=== PATIENT | female | born 1945 | race Caucasian/White ===

== ENCOUNTER → 2020-09-03 14:42 | Outpatient (CLI) | payer MEDICARE, BC, SELFPAY ==
--- NOTE | 2020-09-03 14:48 | CT_ITS ---
INDICATION: PRIMARY OSTEOARTHRITIS EXAMINATION: CT Shoulder W/O Contrast Injection TECHNIQUE: Helically acquired images were obtained of the right shoulder. 2-D reformats were performed by the technologist. A radiation dose optimization technique was used for this scan. IV Contrast dosage and agent: None. COMPARISON: None. FINDINGS: BONES AND ALIGNMENT: No acute fractures. The alignment is anatomic. JOINTS: Moderate hypertrophic osteoarthritis of the acromioclavicular joint. Moderate degenerative changes of the right glenohumeral joint. There is a large complex joint effusion with possible subacromial-subdeltoid bursitis. SOFT TISSUES: No significant soft tissue swelling. OTHER: Scattered groundglass opacities in the right lung. CT/Extremity Upper without Contra IMPRESSION: Large complex glenohumeral joint effusion with possible subacromial-subdeltoid bursitis. An MRI may be of benefit if clinically warranted. Moderate degenerative arthritis of the right glenohumeral and AC joint. Scattered groundglass opacities in the right lung may be infectious or inflammatory in etiology. Electronically Signed: Margarito Nieves MD at 22:57 EDT Tel , Service support ,
== END ==
PROVIDERS: PCP Internal Medicine; Referring Provider Specialist; Visit Provider Specialist
DX: M19.011 Primary osteoarthritis, right shoulder (principal)
CPT/HCPCS: 73200

== ENCOUNTER 2020-11-14 16:01 | Observation (INO) | payer MEDICARE, BC, SELFPAY ==
--- NOTE | 2020-11-06 10:22 | EKG12_ITS ---
Test Reason : PEOP Blood Pressure : / mmHG Vent. Rate : 095 BPM Atrial Rate : 095 BPM P-R Int : 000 ms QRS Dur : 132 ms QT Int : 410 ms P-R-T Axes : 098 262 055 degrees QTc Int : 515 ms Ventricular-paced rhythm Abnormal ECG Confirmed by BERTIN BETH, SUNSHINE ([id number]), health editor KEARA TORRES ([id number]) on 11/07/2020 9:31:59 AM Referred By: Kike Schroeder Confirmed By:SUNSHINE DENTON MD
--- NOTE | 2020-11-06 10:40 | RAD_ITS ---
STUDY: X-RAY CHEST REASON FOR EXAM: Female, 75 years old. Preop TECHNIQUE: COMPARISON: None. FINDINGS: The lungs are clear and expanded. There is no demonstrated pleural abnormality. Normal size heart. Normal mediastinum and sorin. Normal visualized pulmonary arteries. Normal visualized aortic arch and descending thoracic aorta. There is evidence of pacemaker with [address] Normal visualized thoracic spine. Normal visualized ribs, clavicles, and shoulders. There is no demonstrated abnormality of the visualized soft tissue structures of the upper abdomen. RAD/Chest PA and Lateral IMPRESSION: Normal x-ray examination of the chest. Electronically Signed: Eloisa Camacho, at 8:25 EDT Tel , Service support ,
[2020-11-06 12:25] LABS: Absolute Lymphocyte Count 1.54 X10^3/uL (0.83-4.51); Absolute Neutrophil Count 2.7 X10^3/uL (2.0-7.7); Basophil# 0.02 X10^3/uL; Basophil% 0.4 % (0-1); Eosinophil# 0.05 X10^3/uL; Hematocrit 39.9 % (37-47); Hemoglobin 12.6 g/dL (12.0-15.0); Lymphocyte # 1.54 X10^3/ul (0.83-4.51); Lymphocyte % 31.4 % (19-41); Mean Corp Hgb Conc 31.6 g/dL (32-36); Mean Corpuscular Hgb 31.5 pg (27.0-32.0); Mean Corpuscular Volume 99.8 fL (81-99); Mean Platelet Vol. 8.8 fl (6.2-12.0); Monocyte# 0.58 X10^3/uL; Monocyte% 11.8 % (0-10); NRBC Flagged by Analyzer 0 % (0-5); Neutrophil # 2.69 X10^3/uL (2.7-7.7); Platelet Count 235 K/mm3 (150-450); RBC Distribution Width CV 13.9 % (11.6-14.6); RBC Distribution Width SD 51.1 fl (35.1-43.9); White Blood Count 4.9 K/mm3 (4.4-11.0)
[2020-11-06 12:36] LABS: International Normalized Ratio 1.3
[2020-11-06 12:37] LABS: Partial Thromboplast Time 27.5 Seconds (24.1-36.2)
[2020-11-06 13:00] LABS: Hemoglobin A1c 5.6 % (3.8-5.6)
[2020-11-06 13:11] LABS: Anion Gap 5 (5-15); BUN 18 mg/dL (7-18); BUN/Creat Ratio 14.6 RATIO (10-20); Calcium,Total 9.2 mg/dL (8.5-10.1); Chloride 104 mmol/L (98-107); Creatinine, Serum 1.23 mg/dL (0.55-1.02); EST Glomerular Filtration Rate 45 mL/min (>60); Est Glom Filt Rate - Afr Amer 55 mL/min (>60); Glucose 103 mg/dL (74-106); Potassium 4.2 mmol/L (3.5-5.1); Sodium Level 141 mmol/L (136-145)
[2020-11-06 13:32] LABS: AST(SGOT) 29 U/L (15-37); Alanine Aminotransfer ALT/SGPT 24 U/L (13-56); Albumin, Serum 3.7 g/dL (3.2-5.0); Alkaline Phosphatase 70 U/L (45-117); Bilirubin, Direct 0.13 mg/dL (0.00-0.30); Globulin 3.3 g/dL (2.2-4.2); Magnesium 2.1 mg/dL (1.6-2.6)
[2020-11-14] VITALS (11 sets, daily range): BP systolic 101–155; BP diastolic 35–87; PULSE 65–77; RESP 16–20; TEMP 36.5–36.9; O2SAT 95–100; BMI 45.1
[2020-11-14 12:40] LABS: Bedside Glucose 204 mg/dL (70-110)
[2020-11-14] MEDS: Insulin Lispro 100 UNIT/ML INSULN.PEN SC (13:05)
[2020-11-14] MEDS: Lactated Ringers 1,000 ML 100 ML IV ×2 (13:05→16:30)
[2020-11-14] MEDS: Acetaminophen 500 MG Tablet 1000 MG PO ×2 (13:09→22:16)
[2020-11-14] MEDS: Gabapentin 600 MG Tablet PO (13:40)
[2020-11-14] MEDS: dexAMETHasone 10 MG/ML Vial IV (15:00)
[2020-11-14] MEDS: morphine PF (epidural) 5 MG/10 ML Vial (15:55)
[2020-11-14] MEDS: Epinephrine (1 mg/ml) 1 MG/ML VIAL (15:55)
[2020-11-14] MEDS: Ketorolac 30 MG/ML Syringe (15:55)
--- NOTE | 2020-11-14 15:56 | PCM.OPRPT ---
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 [place] reunion glenoid baseplate 2. [place] reunion 36 mm, 2mm Glenosphere 3. Gab[place] reunion 36mm, 8mm humeral liner 4. [place] reunion reverse TSA humeral adapter tray 4mm 5. Gaby reunion humeral stem primary press-fit 15mm size Brief history/Operative indications: 75 yo F with history of right shoulder pain and cuff tear arthropathy. Patient failed conservative measures as mentioned in the H&P. After discussion of risk and benefits of reverse total shoulder replacement including but not limited to blood loss, DVTs, PEs, nerve vessel damage, infection, general risk of anesthesia including loss of life, instability and stiffness patient demonstrating understanding wish to proceed was able to sign informed consent. Medical clearance was obtained. Procedure: On the date of the procedure, patient's right upper extremity was marked in the preoperative area. Patient was taken back to the operating room where they were placed on the table in the supine position. Anesthesia assumed control of the C-spine and airway, then administered anesthetic. All bony prominences were identified well-padded, the head was secured and the patient was placed in the beachchair position at about 35? inclination. Anesthesia remained in control of the C-spine airway throughout the remainder of the procedure. Patient was then appropriately fastened to the table and the right upper extremity was prepped in a sterile fashion. The surgeons then scrubbed. Upon reentering the room, the right upper extremity was draped in a sterile fashion and the incision was marked out. Timeout was called, everyone agreed upon the side, the site, the procedure to be performed, patient identity and antibiotics given. Incision was taken down through skin and subcutaneous tissue, fat down to fascia. The stripe of the deltopectoral interval and cephalic vein were identified and blunt dissection was used to retract the deltoid. The cephalic vein was retracted laterally. Clavipectoral fascia was then incised and a cobra retractor was placed in the wound. The proximal one third of the pectoralis major insertion was released. Pectoralis tendon insertion was used to tenodesed the biceps tendon which was identified in the bicipital groove. Tenodesis was done with #1 Vicryl. Proximally we followed the biceps tendon after transecting it into the rotator interval. The rotator interval was split and the arm was externally rotated. The split was 1 cm medial to the bicipital groove. Subscapularis tendon was released. We released down the anterior portion of the humeral head and a rock elevator was used to release the inferior portion of the humeral head. The arm was externally rotated and the shoulder was dislocated. The humeral head was then cut at its natural retroversion. Once his humeral head cut was made humerus was retracted out of the way and the glenoid was exposed. After exposing the glenoid, the labrum and the remaining proximal biceps were debrided. At this time we are able to view the entire outer edge of the glenoid. A central pin was placed we sequentially reamed over this central pin to 24mm. Once this was completed the central screw was measured and found to be. The glenoid baseplate was screwed into place. Wound was closely irrigated out with normal saline we then drilled sequentially for 2 screws. Screws were placed superiorly and inferiorly and tightened down the screws. Once the screws were appropriately tightened into place the glenoid baseplate was compressed against the exposed subchondral bone. A 36mm glenosphere was impacted into place engaging the [place] taper. Attention was then turned towards the humerus. The humerus was again externally rotated exposing the proximal portion of the humerus. Central canal finder was then used to open up the canal. We reamed to a 15mm reamer. We then broached to a 15mm stem. We trialed the 8mm liner, with the 4mm humeral baseplate. We obtained an adequate reduction at this time with a nice stable shoulder. Good internal rotation to the gluteus, forward elevation to 140?, external rotation to 20?. Final components were then assembled on the back table, trials were removed and the wound was copiously irrigated with normal saline after dislocating the shoulder. Once the final components were assembled they were impacted into place. Shoulder was then reduced and found to be stable with good range of motion. Subscapularis tendon was not repairable. The wound was with chlorhexidine solution then copiously irrigated out with a 1 L normal saline lavage. The deltopectoral fascia was then closed using #1 Vicryl skin was closed using 2-0 Vicryl interrupted sutures and final skin closure was done with 3-0 Monocryl. Steri-Strips are placed for final skin closure. Sterile dressing was placed patient was then placed in a sling and awakened by anesthesia. Patient was then transferred to the PACU for recovery. Postoperative plan: Patient will be admitted to the hospital overnight. They will get physical therapy starting in 2 weeks with normal postoperative regimen. Patient will resume her Eliquis tomorrow for DVT prophylaxis. The first postoperative appointment will be in 2 weeks for wound check and initiation of phase 1 physical therapy. During the course of the procedure the physician oncology physician assistant played a vital role. His intimate knowledge of my steps in the procedure aided in safe and expedient completion of the procedure. The PA played a vital rolls in positioning particularly in obtaining the appropriate beach chair position and securing the patient's body and head to the table. The PA was also vital in the retraction of soft tissues during the exposure and especially the glenoid work as this is a vital part of the procedure to prevent neurovascular damage. the PA was also vital and protecting soft tissues during times of bony cuts and reaming. He also played a vital role in closure with my direct supervision. The PA was also important during reduction and dislocation of the joint and trials intraoperatively. Complications No intraoperative complications Admit VTE Documentation VTE Present on Admission: No VTE Mechan Device Prophylaxis: SCD's VTE Pharm Prophylaxis ordered?: Yes
--- NOTE | 2020-11-14 16:55 | RAD_ITS ---
STUDY: X-RAY - RIGHT SHOULDER REASON FOR EXAM: Female, 75 years old. post op -- AP and Lateral X-Ray of operative shoulder in PACU TECHNIQUE: 2 view(s) of the shoulder. COMPARISON: Chest x-ray dated NOVEMBER 06, 2020 FINDINGS: The humeral head has been resected and a newly placed prosthesis is present with its stem well seated within the proximal one third shaft. The humeral prosthesis proximal head articulating component demonstrates good alignment with the newly placed glenoid ball prosthesis. The glenoid prosthesis is anchored into the bone by several cancellous screws. Expected postoperative gas and soft tissue swelling noted around the shoulder joint. No occult fractures. Normal visualized pulmonary apex. Normal acromioclavicular joint. Normal acromion. RAD/Shoulder min 2 Views IMPRESSION: Status post right shoulder arthroplasty Electronically Signed: Reginald Mcelroy MD at 19:17 EDT , Service support ,
[2020-11-14 17:16] LABS: Bedside Glucose 199 mg/dL (70-110)
[2020-11-14] MEDS: Calcium Acetate 667 MG Capsule 1334 MG PO (18:29)
[2020-11-14] MEDS: Sotalol Hydrochloride 80 MG Tablet PO (18:29)
[2020-11-14] MEDS: Furosemide 20 MG Tablet PO (18:29)
[2020-11-14] MEDS: Ensure Surgery 237 ML LIQUID PO (18:29)
[2020-11-14] MEDS: Ipratropium 0.5 MG/2.5 ML SOLUTION INHALATION (19:26)
[2020-11-14] MEDS: Budesonide Respules 0.5 MG/2 ML AMPUL.NEB. INHALATION (19:27)
--- NOTE | 2020-11-14 19:31 | PCM.PN.HOSP ---
Documented by User: MIGUELINA Peñaloza 11/14/20 19:52 Subjective Subjective Patient is a 75-year-old female who underwent right reverse total shoulder replacement today with Dr. Schroeder. Patient has extensive history of of arrhythmias and due to this we were asked to consult for medical management. Patient states that currently her atrial fibrillation is well controlled after the placement of a pacer AICD and her initiation on sotalol. Patient also reports a medical history of rheumatoid arthritis, COPD, chronic kidney disease stage IIIa, CHF and sleep apnea for which she wears a CPAP. Objective Data Objective Data Vital Signs: Vital Signs Temp Pulse Resp BP Pulse Ox 98.5 F 72 16 144/75 H 95 11/14/20 18:12 11/14/20 18:12 11/14/20 18:12 11/14/20 18:12 11/14/20 18:12 Oxygen Flow Rate (L/min) 6 Oxygen Delivery Method Simple Mask Weight: 262 lb 9.6 oz Body Mass Index (BMI) 45.1 Intake & Output: Intake and Output for Last 24 Hours 11/12/20 11/13/20 11/14/20 23:59 23:59 23:59 Intake Total 1877.5 / 1877.5 Balance 1877.5 / 1877.5 Lab / Micro Data Result Diagrams: 11/06/20 11:00 11/06/20 11:00 Labs: Laboratory Results - last 24 hr 11/14/20 11/14/20 12:35 17:10 POC Glucose 204 H 199 H Micro: Microbiology 11/06/20 11:00 Interface Orders Nasal Screen MRSA/MSSA - Final Radiography Diagnostic Testing: Radiology Impression Shoulder X-Ray 11/14/20 16:55 IMPRESSION: Status post right shoulder arthroplasty Electronically Signed: Reginald Mcelroy MD at 19:17 EDT , Service support , Physical Exam Const alert, oriented x3 and no apparent distress HEENT normocephalic and head/scalp atraumatic Eyes conjunctivae normal and no scleral icterus Neck full ROM, supple and no JVD General: trachea midline Lymph Lymphatic: no lymphadenopathy noted Resp normal respiratory effort, normal air movement, no retractions, no use of accessory muscles and clear to auscultation bilaterally Cardio regular rate, regular rhythm, S1 normal heart sound and S2 normal heart sound Peripheral Pulses: pulses 2+ throughout GI normal to inspection, nondistended, normoactive bowel sounds, soft to palpation and non-tender Extremity normal to inspection, normal capillary refill and no clubbing, cyanosis or edema Peripheral Pulses: Yes pulses 2+ throughout Right Upper Extremity: shoulder joint Shoulder Joint Exam - Right: palpation (Nontender), ROM (Sling on and intact) and neurovascular exam (Intact) Skin no rashes or lesions noted and skin turgor normal Wounds: wounds noted Wound Narrative: Surgical incision to right anterior shoulder, dressing dry and intact Neuro oriented x3, moves all extremities, no focal motor deficits and no sensory deficits noted Psych mental status grossly normal, thought process normal, cooperative, affect normal and speech normal Assessment & Plan Assessment/Plan (1) Status post reverse total replacement of right shoulder: PLAN: 1. Status post reverse total replacement of right shoulder -Surgery completed 11/14/2020 -Pain management regimen ordered per orthopedic surgeon -OT to evaluate and treat 2. Atrial fibrillation -Preop EKG shows ventricularly paced rhythm, will obtain EKG for baseline this admission -Continue sotalol, patient reports being well controlled previous to admission -Per surgery Eliquis will be restarted evening of 11/15/2020 3. Hypertension -Vital signs per protocol, trend BP and heart rate -Current vital signs stable, continue Entresto. -As needed hydralazine ordered 4. Asthma -Due to surgery prednisone currently being held. Would recommend restarting prednisone as soon as cleared by surgery. -Continue budesonide and ipratropium nebulizer treatments along with as needed albuterol aerosols. -Continue home CPAP while admitted 5. Chronic kidney disease stage IIIa -Currently patient is at baseline -Trend BUN and creatinine with daily BMP -Phoslo ordered 6. Congestive heart failure -Continue p.o. Lasix -IV fluids discontinued due to patient adequate p.o. intake -Daily weights ordered 7. Rheumatoid arthritis - Patient currently on Xeljanz, advised to bring in medication from home. DVT prophylaxis-SCDs This patient was seen by MIGUELINA Peñaloza under the supervision of Dr. Dolan. Documented by User: Dr. Sofy Dolan MD 11/14/20 19:56 Objective Data Lab / Micro Data Result Diagrams: 11/06/20 11:00 11/06/20 11:00
--- NOTE | 2020-11-14 19:35 | EKG12_ITS ---
Test Reason : Blood Pressure : / mmHG Vent. Rate : 069 BPM Atrial Rate : 069 BPM P-R Int : 194 ms QRS Dur : 074 ms QT Int : 412 ms P-R-T Axes : 062 -76 026 degrees QTc Int : 441 ms Electronic ventricular pacemaker When compared with ECG of 06-NOV-2020 10:25, Vent. rate has decreased BY 26 BPM Confirmed by JAZ BETH, TENISHA ([id number]), photo editor KEARA TORRES ([id number]) on 11/15/2020 12:55:30 PM Referred By: Kike Schroeder Confirmed By:LUDMILA SEBASTIAN MD
[2020-11-14] MEDS: Ondansetron 4 MG/2 ML Vial IV (20:44)
[2020-11-14] MEDS: 0.9% Saline Lock 10 ML Syringe IV (20:44)
[2020-11-14] MEDS: Cefazolin 1 GM/50 ML BAG IV (22:15)
[2020-11-14] MEDS: Tolterodine Tartrate 2 MG CAP.SA PO (22:16)
[2020-11-14] MEDS: SACUBITRIL/VALSARTAN 24/26 MG TABLET 1 EACH PO (22:17)
[2020-11-14] MEDS: Atorvastatin Calcium 80 MG Tablet PO (22:17)
[2020-11-14] MEDS: DULoxetine Hcl 60 MG Capsule PO (22:17)
[2020-11-14] MEDS: Senna/Docusate Sodium 1 Tablet 2 TABLET PO (22:18)
[2020-11-15 02:30] VITALS: BP 134/68; PULSE 83; RESP 18; TEMP 36.5; O2SAT 96
[2020-11-15] MEDS: Cefazolin 1 GM/50 ML BAG IV (06:02)
[2020-11-15] MEDS: Acetaminophen 500 MG Tablet 1000 MG PO ×2 (06:03→13:09)
[2020-11-15] MEDS: 0.9% Saline Lock 10 ML Syringe IV (06:03)
[2020-11-15] MEDS: Ketorolac 15 MG/ML Vial IV (06:03)
[2020-11-15] MEDS: Sotalol Hydrochloride 80 MG Tablet PO (06:03)
[2020-11-15 06:53] LABS: Hematocrit 30.4 % (37-47); Hemoglobin 9.5 g/dL (12.0-15.0); Mean Corp Hgb Conc 31.3 g/dL (32-36); Mean Corpuscular Hgb 30.9 pg (27.0-32.0); Mean Platelet Vol. 9.1 fl (6.2-12.0); Platelet Count 138 K/mm3 (150-450); RBC Distribution Width CV 13.2 % (11.6-14.6); RBC Distribution Width SD 47.4 fl (35.1-43.9); Red Blood Count 3.07 M/mm3 (4.2-5.4); White Blood Count 9.5 K/mm3 (4.4-11.0)
[2020-11-15 07:19] LABS: Anion Gap 6 (5-15); BUN 19 mg/dL (7-18); BUN/Creat Ratio 15.2 RATIO (10-20); Calcium,Total 8.2 mg/dL (8.5-10.1); Chloride 103 mmol/L (98-107); Creatinine, Serum 1.25 mg/dL (0.55-1.02); EST Glomerular Filtration Rate 44 mL/min (>60); Est Glom Filt Rate - Afr Amer 54 mL/min (>60); Estimated Creatinine Clearance 33.06 ml/min; Glucose 224 mg/dL (74-106); Sodium Level 135 mmol/L (136-145)
[2020-11-15] MEDS: Budesonide Respules 0.5 MG/2 ML AMPUL.NEB. INHALATION (07:34)
[2020-11-15] MEDS: Ipratropium 0.5 MG/2.5 ML SOLUTION INHALATION (07:34)
[2020-11-15 07:35] VITALS: PULSE 80; RESP 20; O2SAT 96
--- NOTE | 2020-11-15 07:36 | CPS ---
wears with cpap at night
[2020-11-15 08:28] VITALS: BP 109/61; PULSE 67; RESP 18; TEMP 36.6; O2SAT 94
[2020-11-15] MEDS: Calcium Acetate 667 MG Capsule 1334 MG PO ×2 (08:37→11:57)
[2020-11-15] MEDS: Aspirin E.C. 81 MG Tablet PO (08:37)
[2020-11-15] MEDS: Folic Acid 1 MG Tablet PO (08:37)
[2020-11-15] MEDS: Ensure Surgery 237 ML LIQUID PO (08:37)
--- NOTE | 2020-11-15 08:51 | PCM.PN.ORT ---
Subjective Subjective The patient was sitting in bedside chair upon examination. Patient denies any chest pain, shortness of breath, dizziness, lightheadedness, nausea or vomiting, or calf pain. Pain is controlled on medications. No adverse overnight events. Patient does have soreness and some pain in the right shoulder. She has been placed back on her Eliquis as prescribed from outside provider. This will cover her for DVT prophylaxis. Her pain is been well controlled. Objective Data Objective Data Vital Signs: Vital Signs Temp Pulse Resp BP Pulse Ox 97.8 F 67 18 109/61 94 11/15/20 08:28 11/15/20 08:28 11/15/20 08:28 11/15/20 08:28 11/15/20 08:28 Oxygen Flow Rate (L/min) 4 Oxygen Delivery Method CPAP Weight: 123.9 kg Body Mass Index (BMI) 45.1 Intake & Output: Intake and Output for Last 24 Hours 11/13/20 11/14/20 11/15/20 23:59 23:59 23:59 Intake Total 2607.5 / 2607.5 1006.75 / 1006.75 Balance 2607.5 / 2607.5 1006.75 / 1006.75 Lab / Micro Data Result Diagrams: 11/15/20 06:05 11/15/20 06:05 Labs: Laboratory Results - last 24 hr 11/14/20 11/14/20 11/15/20 12:35 17:10 06:05 WBC 9.5 RBC 3.07 L Hgb 9.5 L Hct 30.4 L MCV 99.0 MCH 30.9 MCHC 31.3 L RDW Std Deviation 47.4 H RDW Coeff of Amrita 13.2 Plt Count 138 L MPV 9.1 Sodium Potassium Chloride Carbon Dioxide Anion Gap BUN Creatinine Estim Creat Clear Calc Est GFR (MDRD) Af Amer Est GFR (MDRD) Non-Af BUN/Creatinine Ratio Glucose Calcium POC Glucose 204 H 199 H 11/15/20 06:05 WBC RBC Hgb Hct MCV MCH MCHC RDW Std Deviation RDW Coeff of Amrita Plt Count MPV Sodium 135 L Potassium 4.0 Chloride 103 Carbon Dioxide 26.0 Anion Gap 6 BUN 19 H Creatinine 1.25 H Estim Creat Clear Calc 33.06 Est GFR (MDRD) Af Amer 54 L Est GFR (MDRD) Non-Af 44 L BUN/Creatinine Ratio 15.2 Glucose 224 H Calcium 8.2 L POC Glucose Micro: Microbiology 11/06/20 11:00 Interface Orders Nasal Screen MRSA/MSSA - Final Radiography Diagnostic Testing: Radiology Impression Shoulder X-Ray 11/14/20 16:55 IMPRESSION: Status post right shoulder arthroplasty Electronically Signed: Reginald Mcelroy MD at 19:17 EDT , Service support , Physical Exam Narrative Vital signs stable, afebrile Dressing is clean, dry, intact Ultra-sling fitting appropriately Sensation intact to axillary, radial, median, and ulnar distribution Motor intact to AIN, PIN, and ulnar nerve Const alert, oriented x3 and no apparent distress Assessment & Plan Assessment/Plan (1) Status post reverse total replacement of right shoulder: PLAN: 1. S/P right reverse total shoulder arthroplasty POD #1 2. Continue Pain Medications: Tylenol and oxycodone 3. DVT Prophylaxis: Patient has been placed back on her Eliquis and aspirin 81 mg as this is a home medicine from outside provider. This will cover her for DVT prophylaxis. 4. PT/OT: Continue with UltraSling at all times except to come out for range of motion exercises of the elbow and pendulum exercise 3 times daily. No range of motion of the postoperative shoulder until outpatient physical therapy begins. Outpatient physical therapy will begin 2 weeks postoperatively after follow-up with [facility] with x-rays and incision check. 5. H & H: 9.5/30.4, asymptomatic. Postoperative anemia secondary to acute blood loss from surgery without any intra operative complications. 6. Continue postoperative medical management per medicine 7. Encouraged Incentive Spirometry 8. Disposition: Plan will be for discharge home today as long as pain is well controlled and patient is medically stable. Patient has outpatient physical therapy to begin after the 2-week postoperative visit. She will follow-up per postop instructions. Patient would like her prescription sent to [facility]. I have reviewed the [place] Automated Rx Reporting System (OARRS) report for this patient for refill pattern and other prescriber involvement as part of the appropriate surveillance for the provision of acute and chronic controlled medications. The report was requested and reviewed on the date of this entry and was considered in the prescribing process.
--- NOTE | 2020-11-15 08:54 | PCM.DC ---
Discharge Instructions Diet Discharge Diet: No restrictions Activity Discharge Activity: May Not Drive (while taking narcotic pain medications.) May shower in (days): 1 (Dressing must be intact to skin. Turn dressing away from water.) Ice area for (Minutes): 20 (Every 1-2 hours while awake[address] Please place barrier between skin and ice pack.) Weight Bearing Status: No weight bearing (Postoperative upper extremity) Additional Activity Instructions:: Continue with UltraSling at all times. Please come out of UltraSling 3 times daily working on elbow range of motion and pendulum exercises. No range of motion of postoperative shoulder. Will begin outpatient physical therapy after 2-week scheduled follow-up. Dressing / Incision Call your doctor if your incision/area has: Continuous Slow Oozing, Sudden Increased Bleeding, Increased Pain/ Swelling, Increased Redness and Foul Smelling Discharge Call your doctor if you observe: Fever of 101 or Higher, Shortness of breath, Chest pain and Uncontrolled pain Remove Dressing in: 4 days (Okay to remove dressing on November 19, 2020) Additional Dressing/Incision Instructions:: Follow [facility] Post-op Instructions. Once postoperative dressing has been removed only use gentle soap and water over the incision. Do not use any ointments, Neosporin, salves, alcohol pads over the incision for 6 weeks postoperatively. Do not submerge underwater for 6 weeks postoperatively. Do NOT use alcohol with narcotic pain medication. Do NOT make important decisions while taking narcotic medication. If you have problems with taking your medication (rash, itching, nausea, etc.) call the office at once. Follow Up Care Test Results: Test results from this visit will be discussed in further detail at your follow-up appointment, if applicable. Discharge Plan Admission Admit Date/Time: 11/14/20 16:01 Attending Provider: Kike Schroeder Primary Care Provider: Crispin Jhaveri Consulting Providers: Rodger Orr Discharge Orders/Prescriptions Prescriptions: New acetaminophen 500 mg Tablet 1,000 mg PO TID Qty: 100 RF: 0 oxycodone 5 mg Tablet 5 - 10 mg PO Q4H PRN PRN (Reason: Pain Score 4-10) 4 Days Qty: 48 RF: 0 sennosides-docusate sodium [Stool Softener-Stimulant Laxat] 8.6-50 mg Tablet 2 tab PO BID Qty: 14 RF: 0 Continued atorvastatin 80 mg tablet 80 mg PO DAILY RF: 0 benzonatate 200 mg capsule 200 mg PO BID PRN (Reason: Cough) RF: 0 sotalol 80 mg tablet 80 mg PO Q12H RF: 0 prednisone 5 mg tablet 5 mg PO DAILY RF: 0 aspirin [Aspirin Low Dose] 81 mg tablet,delayed release (DR/EC) 81 mg PO DAILY RF: 0 pantoprazole 40 mg tablet,delayed release (DR/EC) 40 mg PO DAILY RF: 0 lansoprazole 30 mg Capsule,Delayed Release(Dr/Ec) 30 mg PO DAILY RF: 0 oxybutynin chloride 5 mg tablet extended release 24hr 5 mg PO QHS RF: 0 folic acid 1 mg Tablet 1 mg PO DAILY RF: 0 zolpidem 5 mg tablet 5 mg PO QHS PRN (Reason: Insomnia) RF: 0 furosemide 20 mg tablet 20 mg PO BID RF: 0 albuterol sulfate 90 mcg/actuation HFA aerosol inhaler 1 puff INHALATION Q6H PRN (Reason: Wheezing) RF: 0 diphenhydramine-acetaminophen [Tylenol PM Extra Strength] 25-500 mg Tablet 2 tab PO QHS PRN (Reason: insom) RF: 0 vitamin B complex Capsule 1 cap PO TID RF: 0 coenzyme Q10 [CoQ-10] 100 mg Capsule 100 mg PO DAILY RF: 0 glucosamine-chondroitin [Osteo Bi-Flex] 250-200 mg Tablet 2 tab PO TID RF: 0 calcium acetate(phosphat bind) 667 mg Capsule 1,334 mg PO TID RF: 0 duloxetine 60 mg capsule,delayed release(DR/EC) 60 mg PO QHS RF: 0 cholecalciferol (vitamin D3) [Vitamin D3] 25 mcg (1,000 unit) Tablet 25 mcg PO DAILY RF: 0 Pulmicort Flexhaler 180 mcg/actuation aerosol powdr breath activated 2 inh INHALATION BID RF: 0 Xeljanz 5 mg tablet 5 mg PO BID RF: 0 Eliquis 5 mg tablet 5 mg PO Q12H RF: 0 Stiolto Respimat 2.5-2.5 mcg/actuation mist 2 puff INHALATION DAILY RF: 0 Entresto 24-26 mg tablet 1 tab PO BID RF: 0 B12 Active 1,000 mcg Tablet,Chewable 1,000 mcg PO DAILY RF: 0 Discontinued acetaminophen [Arthritis Pain Relief (acetam)] 650 mg Tablet Extended Release 650 mg PO Q8H RF: 0 No Action montelukast 10 mg tablet 10 mg PO DAILY RF: 0 Other Ambulatory Orders: 12 Lead EKG (Routine) Location: None Selected Ordered By: Dr. Kike Schroeder Referrals / Follow Up: Crispin Jhaveri MD [Primary Care Provider] - Kamaljit Perez PA-C [PHYSICIAN LEAD INSTALLER] - 11/28/20 1:15 pm Disposition Disposition (needs filled in before D/C Order can be placed): Home, Self Care
--- NOTE | 2020-11-15 09:24 | PN.HOSP_ITS ---
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 She used to follow [place] woven wood shade assembler before but currently not seeing woven wood shade assembler. Hemoglobin 9.5, baseline 12.6. Platelet count baseline 235 current 138. Advised to hold aspirin for about 1 to 2 weeks, repeat CBC in 1 week and follow- up with PCP later, whether to resume baby aspirin. She is on 4 L of oxygen that is her baseline. No chest pain. No shortness of breath, more than her baseline. And right shoulder surgery yesterday. Objective Data Objective Data Vital Signs: Vital Signs Temp Pulse Resp BP Pulse Ox 97.8 F 67 18 109/61 94 11/15/20 08:28 11/15/20 08:28 11/15/20 08:28 11/15/20 08:28 11/15/20 08:28 Oxygen Flow Rate (L/min) 4 Oxygen Delivery Method CPAP Weight: 273 lb 2.444 oz Body Mass Index (BMI) 45.1 Intake & Output: Intake and Output for Last 24 Hours 11/13/20 11/14/20 11/15/20 23:59 23:59 23:59 Intake Total 2607.5 / 2607.5 1006.75 / 1006.75 Balance 2607.5 / 2607.5 1006.75 / 1006.75 Lab / Micro Data Result Diagrams: 11/15/20 06:05 11/15/20 06:05 Labs: Laboratory Results - last 24 hr 11/14/20 11/14/20 11/15/20 12:35 17:10 06:05 WBC 9.5 RBC 3.07 L Hgb 9.5 L Hct 30.4 L MCV 99.0 MCH 30.9 MCHC 31.3 L RDW Std Deviation 47.4 H RDW Coeff of Amrita 13.2 Plt Count 138 L MPV 9.1 Sodium Potassium Chloride Carbon Dioxide Anion Gap BUN Creatinine Estim Creat Clear Calc Est GFR (MDRD) Af Amer Est GFR (MDRD) Non-Af BUN/Creatinine Ratio Glucose Calcium POC Glucose 204 H 199 H 11/15/20 06:05 WBC RBC Hgb Hct MCV MCH MCHC RDW Std Deviation RDW Coeff of Amrita Plt Count MPV Sodium 135 L Potassium 4.0 Chloride 103 Carbon Dioxide 26.0 Anion Gap 6 BUN 19 H Creatinine 1.25 H Estim Creat Clear Calc 33.06 Est GFR (MDRD) Af Amer 54 L Est GFR (MDRD) Non-Af 44 L BUN/Creatinine Ratio 15.2 Glucose 224 H Calcium 8.2 L POC Glucose Micro: Microbiology 11/06/20 11:00 Interface Orders Nasal Screen MRSA/MSSA - Final Radiography Diagnostic Testing: Radiology Impression Shoulder X-Ray 11/14/20 16:55 IMPRESSION: Status post right shoulder arthroplasty Electronically Signed: Reginald Mcelroy MD at 19:17 EDT , Service support , Physical Exam Narrative Physical exam General: Alert, Oriented x3, Cooperative HEENT: Atraumatic, PERRLA, EOMI, Normocephalic Oral: No Gingival or Mucosal Lesions/ Ulcerations Neck: Supple, No JVD, Negative Carotid Bruits Lungs: Air entry diminished in bilateral lung bases. No crepitation/rhonchi Cardiovascular: Regular rate, Regular Rhythm, Normal S1, Normal S2, No murmurs Abdomen: Bowel Sounds Present, Soft, Non Tender, Non-Distended : No renal angle tenderness. No suprapubic tenderness. Extremities: Right shoulder surgical dressing is dry. On Ultrasling. no edema, Capillary Refill Less than 3 Seconds Skin: No rashes, No breakdown Musculoskeletal: No Tenderness to Palpation of Joints or Extremities Neurological: Cranial nerves II-XII grossly intact, Deep Tendon Reflexes 2+/4 and Symmetrical, Neuro grossly intact Psych/Mental Status: Normal Affect, Appropriate. Assessment & Plan Assessment/Plan (1) Status post reverse total replacement of right shoulder: PLAN: 1. 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 Hemoglobin dropped from 12.6-9.5, acute anemia from operative/surgical blood l oss. Mild thrombocytopenia, platelet count 1 38,000, dropped from 235,000. Advised to hold baby aspirin for about 2 weeks and repeat CBC with PCP within 2 weeks. Patient is already on Eliquis 5 mg twice daily for A. fib. 2. Chronic heart failure, nonischemic cardiomyopathy status post AICD, par oxysmal A. fib: Patient is on Entresto, sotalol, Lasix, and high intensity statin therapy. As mentioned above advised to hold baby aspirin. Needs to follow outpatient woven wood shade assembler. 3. COPD/asthma/allergic rhinitis: Patient follows [facility] rubber engra[facility]. Has CPAP at home. Currently on baseline. 4. Other comorbidities include obstructive sleep apnea, GERD: Home medications continued Discussed with the orthopedic PAKamaljit and discussed the management plan. Follow-up with orthopedic surgery for outpatient rehab and range of motion of right shoulder. Charges/Coding Visit Charges Inpatient E&M: 27460 Subs Hosp L2
[2020-11-15] MEDS: Montelukast 10 MG Tablet PO (10:11)
[2020-11-15] MEDS: Cholecalciferol (VIT D3) 25 MCG TABLET (1,000 UNITS) PO (10:11)
[2020-11-15] MEDS: Senna/Docusate Sodium 1 Tablet 2 TABLET PO (10:11)
[2020-11-15] MEDS: Furosemide 20 MG Tablet PO (10:12)
[2020-11-15] MEDS: SACUBITRIL/VALSARTAN 24/26 MG TABLET 1 EACH PO (10:12)
[2020-11-15] MEDS: Pantoprazole Sodium 40 MG Tablet PO (10:12)
--- NOTE | 2020-11-15 10:20 | CASEMGMT ---
MAUDE KELLER Assessment: Face to Face with pt for initial transition planning/care coordination assessment. RN ARIANNA introduced self and role at [facility], pt voices understanding and consents to assessment. Pt is A/O x4 and answers all questions appropriately at this time. Pt sitting up in chair eating breakfast, nurse at bedside. As soon as CM entered room, pt states she wants to go to [facility]. Care providers, pharmacy, and demographics verified/updated. Admitting Dx: R total shoulder replacement, reverse PCP: Shakila Specialists: Deana, ortho; Lisa, cardiovascular; Parveen vanessa at [facility]; Paz Jurado COMPUTER NETWORKER or PA, pt unsure of which from [facility] cardio[facility] Insurance: Elida AMBROCIO Prescription Benefit: yes LW/HPOA: Pt denies having LW/DPOA. LNOK: Arielle Abreu, dtr; Shara Romero, dtr; Juan Dsouza, ; Vincent Romero, grandson Living Arrangements: Pt lives with in a single story house with 3 steps to enter without rail. Pt states her dtr and grandson live in the basement, but they have their own lives and she does not see them much. Pt reports she was mostly I in ADL's prior to surgery but was unable to fasten undergarments of the upper body. Transportation: Pt previously drove self and states her is able to transport her to medical appts if needed. Pt denies concerns with transportation. DME/HHC/SNF: Pt has a CPAP at home with 4L O2 at HS from [employer], a nebulizer machine and a cane. Pt has had no previous HHC. Pt has stayed at [facility] for 4wks with each knee replacement. Pt states she does not feel that her can assist her at home. She states he has previously had a stroke and has vision issues. She would like to go to [facility] for s/t therapy. She states she was wobly today when she worked with PT. Notified Godwin LAMBERT of this request. Pt had been set up at [facility] for therapy to start in 2 wks. Pt states no further concerns/needs. CM to follow. Advised pt to ask CM if any further question/concerns/needs arise, voices understanding. Pt Goal: [facility] Plan: [facility] for s/t therapy
--- NOTE | 2020-11-15 10:56 | TREXTCAR_ITS ---
Diet 11/15/20 06:44 Diet: Regular - General Is pt able to select menu?: Yes Routine Orders/Code Status Routine Lab Work: CBC (Repeat CBC in 1 week) Wound(s) right shoulder: Dressing Change: Okay to remove dressing on November 19, 2020. (Dressing is okay to get wet. No submersion underwater for 6 weeks postoperatively) Therapies Weight Bearing: Non weight bearing (Right upper extremity) Physical Therapy: Eval and Treat (Continue with UltraSling at all times except to come out for range of motion exercises of the elbow and pendulum exercise 3 times daily. No range of motion of the postoperative shoulder until outpatient physical therapy begins 2 weeks postoperatively. Outpatient physical therapy will begin 2 weeks) Occupational Therapy: Eval and Treat Problem/Diagnosis (1) Status post reverse total replacement of right shoulder: Status: Acute Allergies/Procedures Done in Hospital Allergies pregabalin [From Lyrica] Allergy (Verified 10/31/20 11:51) Swelling Type of Care/Length of Stay Estimated LOS: Convalescent Care Less Than 30 days Type of Care Needed: Skilled Rehab Potential: Good Prognosis: Good Additional Orders/Day of Discharge Day of Discharge: 11/15/20 Follow Up Care Please Follow Up With: Kamaljit Perez PASweetieC When: 2-week postoperative follow-up November 28, 2020 at 1:15 PM Discharge Plan Admission Admit Date/Time: 11/14/20 16:01 Attending Provider: Kike Schroeder Primary Care Provider: Crispin Jhaveri Consulting Providers: Rodger Orr Discharge Orders/Prescriptions Prescriptions: New acetaminophen 500 mg Tablet 1,000 mg PO TID Qty: 100 RF: 0 oxycodone 5 mg Tablet 5 - 10 mg PO Q4H PRN PRN (Reason: Pain Score 4-10) 4 Days Qty: 48 RF: 0 sennosides-docusate sodium [Stool Softener-Stimulant Laxat] 8.6-50 mg Tablet 2 tab PO BID Qty: 14 RF: 0 Continued atorvastatin 80 mg tablet 80 mg PO DAILY RF: 0 benzonatate 200 mg capsule 200 mg PO BID PRN (Reason: Cough) RF: 0 sotalol 80 mg tablet 80 mg PO Q12H RF: 0 prednisone 5 mg tablet 5 mg PO DAILY RF: 0 aspirin [Aspirin Low Dose] 81 mg tablet,delayed release (DR/EC) 81 mg PO DAILY RF: 0 pantoprazole 40 mg tablet,delayed release (DR/EC) 40 mg PO DAILY RF: 0 lansoprazole 30 mg Capsule,Delayed Release(Dr/Ec) 30 mg PO DAILY RF: 0 oxybutynin chloride 5 mg tablet extended release 24hr 5 mg PO QHS RF: 0 folic acid 1 mg Tablet 1 mg PO DAILY RF: 0 zolpidem 5 mg tablet 5 mg PO QHS PRN (Reason: Insomnia) RF: 0 furosemide 20 mg tablet 20 mg PO BID RF: 0 albuterol sulfate 90 mcg/actuation HFA aerosol inhaler 1 puff INHALATION Q6H PRN (Reason: Wheezing) RF: 0 diphenhydramine-acetaminophen [Tylenol PM Extra Strength] 25-500 mg Tablet 2 tab PO QHS PRN (Reason: insom) RF: 0 vitamin B complex Capsule 1 cap PO TID RF: 0 coenzyme Q10 [CoQ-10] 100 mg Capsule 100 mg PO DAILY RF: 0 glucosamine-chondroitin [Osteo Bi-Flex] 250-200 mg Tablet 2 tab PO TID RF: 0 calcium acetate(phosphat bind) 667 mg Capsule 1,334 mg PO TID RF: 0 duloxetine 60 mg capsule,delayed release(DR/EC) 60 mg PO QHS RF: 0 cholecalciferol (vitamin D3) [Vitamin D3] 25 mcg (1,000 unit) Tablet 25 mcg PO DAILY RF: 0 Pulmicort Flexhaler 180 mcg/actuation aerosol powdr breath activated 2 inh INHALATION BID RF: 0 Xeljanz 5 mg tablet 5 mg PO BID RF: 0 Eliquis 5 mg tablet 5 mg PO Q12H RF: 0 Stiolto Respimat 2.5-2.5 mcg/actuation mist 2 puff INHALATION DAILY RF: 0 Entresto 24-26 mg tablet 1 tab PO BID RF: 0 B12 Active 1,000 mcg Tablet,Chewable 1,000 mcg PO DAILY RF: 0 Discontinued acetaminophen [Arthritis Pain Relief (acetam)] 650 mg Tablet Extended Release 650 mg PO Q8H RF: 0 No Action montelukast 10 mg tablet 10 mg PO DAILY RF: 0 Other Ambulatory Orders: 12 Lead EKG (Routine) Location: None Selected Ordered By: Dr. Kike Schroeder Referrals / Follow Up: Crispin Jhaveri MD [Primary Care Provider] - Kamaljit Perez PA-C [PHYSICIAN BREAD WRAPPING MACHINE FEEDER] - 11/28/20 1:15 pm Disposition Disposition (needs filled in before D/C Order can be placed): Care Home Facility
[2020-11-15 11:00] VITALS: PULSE 80
[2020-11-15] MEDS: oxyCODONE 5 MG Tablet PO (11:13)
--- NOTE | 2020-11-15 12:12 | CASEMGMT ---
Social Work Note PETRA updated that pt is requesting SNF at discharge and preference is [facility]. PETRA placed a call to Luz Maria at [facility] and provided referral. PETRA faxed referral to [facility]. PETRA received call from Luz Maria with [facility] stating they can accept pt today, doesn't need a COVID test as long as pt is not symptomatic. Luz Maria asked if pt has had COVID vaccinations, PETRA informed Luz Maria that this worker is not sure will have to ask pt. SW in to speak with pt. PETRA introduced self and role at [facility]. PETRA informed pt that [facility] is able to accept pt today. Pt states understanding, agreeable to [facility]. Pt states she has had both COVID vaccinations. Pt states her is able to transport pt, will be at [facility] around 2:00pm to transport pt to [facility]. PETRA attempted to provide pt with a list of SNF providers including quality and resource use data and consistent with the patient?s preferred geographic region, medical needs, and insurance network but pt denied SNF list. PETRA placed a call to back to Luz Maria at [facility] and left message updating her that pt has had COVID vaccination and pt's is transporting pt at 2:00pm. PETRA faxed discharge paperwork to [facility] including transfer to extended care facility, signed medication list, any scripts, PAS/RR, and COVID tool. Original in SNF Folder and copy on pt's chart. PETRA completed PAS/RR in [facility]. Original in SNF folder and copy on pt's chart. RN and PA updated. Plan: [facility] skilled today with pt's transporting pt at 2:00pm Brook Leung MINK FARMER, [employer]
[2020-11-15 14:20] VITALS: BP 96/60; PULSE 80; RESP 18; TEMP 36.3; O2SAT 93
== END 2020-11-15 14:45 | disposition skilled nursing facility (03) ==
LOC: SDC 16:14 → MS3 16:14
PROVIDERS: Anesthesiology; Admitting Provider Specialist; PCP Internal Medicine; Referring Provider Specialist; Visit Provider Specialist
PROC: (CPT 23472; principal; 2020-11-14 14:00)
DX: M19.011 Primary osteoarthritis, right shoulder (principal); M75.101 Unspecified rotator cuff tear or rupture of right shoulder, not specified as traumatic; M06.9 Rheumatoid arthritis, unspecified; J44.9 Chronic obstructive pulmonary disease, unspecified; N18.31 Chronic kidney disease, stage 3a; I13.0 Hypertensive heart and chronic kidney disease with heart failure and stage 1 through stage 4 chronic kidney disease, or unspecified chronic kidney disease; I48.0 Paroxysmal atrial fibrillation; E78.5 Hyperlipidemia, unspecified; I50.22 Chronic systolic (congestive) heart failure; K21.9 Gastro-esophageal reflux disease without esophagitis; E66.01 Morbid (severe) obesity due to excess calories; G47.33 Obstructive sleep apnea (adult) (pediatric); Z79.899 Other long term (current) drug therapy; Z79.82 Long term (current) use of aspirin; Z79.01 Long term (current) use of anticoagulants; Z79.51 Long term (current) use of inhaled steroids; Z95.810 Presence of automatic (implantable) cardiac defibrillator; Z79.52 Long term (current) use of systemic steroids; M79.7 Fibromyalgia
CPT/HCPCS: 01638; 23472; 36415; 71046; 73030; 80048; 80076; 82962; 83036; 83735; 85025; 85027; 85610; 85730; 87081; 93005; 94640; 96365; 96366; 96375; 97162; 97166; 97530; 99218; 99251; C1776; J7040; J7120; A4216; G0378; G0379; G0463; J2405

== ENCOUNTER → 2021-01-24 12:39 | Outpatient (CLI) | payer MEDICARE, BC, SELFPAY ==
--- NOTE | 2021-01-24 12:42 | CT_ITS ---
STUDY: CT LUMBAR SPINE WITHOUT CONTRAST REASON FOR EXAM: Female, 75 years old. SPONDYLOLYSIS RADIATION DOSAGE (If Supplied By Facility): CTDIvol = ( 47.49 ) mGy, DLP = ( 1106.90 ) mGycm TECHNIQUE: The patient was scanned in a multi detector CT scanner. High resolution transaxial imaging was performed. Images were obtained from L1 to S1 vertebral level. Sagittal and coronal images were reconstructed. Individualized dose optimization techniques were used for this CT. COMPARISON: None FINDINGS: Normal lumbar lordosis. There is no substantial scoliosis. Multilevel spondylosis. L1-2: Marked degree of disc space narrowing and disc degeneration. Spondylosis. Mild degree of bilateral neural foraminal stenosis. L2-3: Marked degree of disc space narrowing. Anterior spondylosis. Facet joint hypertrophy. Mild degree of diffuse posterior disc bulge. Mild degree of central canal stenosis. L3-4: Marked degree of disc space narrowing with disc degeneration. Spondylosis. Mild to moderate degree of central canal stenosis due to hypertrophy of the ligamenta flava and facet joint osteoarthritis. Moderate degree of bilateral neural foraminal stenosis slightly worse on the left side. L4-5: Marked degree of disc space narrowing. Hypertrophy of the facet joints as well as the ligamenta flava. This causes mild to moderate degree of central canal stenosis. There is also evidence of a moderate degree of bilateral neural foraminal stenosis. L5-S1: Moderate degree of disc space narrowing and disc degeneration. Hypertrophy of facet joints. No significant stenosis is seen. Normal visualized paraspinous soft tissue structures. CT/Spine Lumbar without Contrast IMPRESSION: Multilevel degenerative changes, as described above. Electronically Signed: Tanner Velez MD at 15:03 EDT , Service support ,
[2021-01-24 12:56] VITALS: BP 151/75; PULSE 66; RESP 18; TEMP 36.7; O2SAT 98; BMI 43.0
[2021-01-24 13:11] VITALS: BP 130/69; PULSE 62; RESP 16; O2SAT 97
--- NOTE | 2021-01-24 13:20 | RAD_ITS ---
PROCEDURE: LUMBAR MYELOGRAM DATE OF EXAMINATION: 01/24/2021. INDICATION: Female, 75 years old. Low back pain. PHYSICIAN: Tanner Velez M.D. CONSENT: The patient''s history and physical findings were reviewed. The lumbar myelogram procedure was discussed with the patient prior to signing a consent. SEDATION: Local anesthesia with 3 mL of 1% lidocaine was used. FLUOROSCOPY TIME (if supplied): (3:30) minutes/seconds Attempted lumbar puncture and lumbar myelogram unsuccessful due to hypertrophy of the spinous process. TECHNIQUE: Despite multiple attempts, successful mammogram was not obtained.. RAD/Lumbar Myelogram IMPRESSION: Unsuccessful attempted lumbar myelogram. Electronically Signed: Tanner Velez MD at 15:05 EDT , Service support ,
[2021-01-24] MEDS: Lidocaine 2% (5ml sdv) 5 ML VIAL.MPF INFILT ×2 (13:30→13:40)
[2021-01-24 14:11] VITALS: BP 156/80; PULSE 81; RESP 18; O2SAT 99
--- NOTE | 2021-01-24 14:36 | NURSING ---
Pt was unable to receive injection of contrast for the myelogram due to anatomy. Pt is aware no contrast was able to be given and CT done without contrast was obtained. Dr. Velez states that pt is able to d/c'd after CT. Pt d/c'd via wheelchair at 1411.
== END | disposition home or self-care (01) ==
PROVIDERS: PCP Internal Medicine; Referring Provider Orthopaedic Surgery; Visit Provider Orthopaedic Surgery
DX: M48.061 Spinal stenosis, lumbar region without neurogenic claudication (principal); M43.06 Spondylolysis, lumbar region
CPT/HCPCS: 62304; 72131; Q9965

== ENCOUNTER 2021-06-13 17:27 | Observation (INO) | payer MEDICARE, BC, SELFPAY ==
--- NOTE | 2021-06-10 15:19 | CASEMGMT ---
Social Work SW received a call from pt. She states she is having surgery on and will have twice daily dressing changes. She states she cannot do it and nobody in her family can do it either. She states her had a stroke and his vision is affected. She states her one granddaughter works, another is getting over COVID. Pt would like to go to [facility] if possible. Pt states has been there before. SW explained will call [facility] to see if they can take pt. SW called Adamaris at [facility], they can likely take pt, but pt may have to share a room as they are having a COVID outbreak. SW called pt back and let her know, she is fine with this. PETRA will send an email to the SW in the hospital so SW can follow up w/pt once here. KILEY Brown
[2021-06-13] VITALS (11 sets, daily range): BP systolic 103–154; BP diastolic 67–106; PULSE 60–76; RESP 16–18; TEMP 35.6–36.6; O2SAT 92–98; BMI 41.6
[2021-06-13] MEDS: Lactated Ringers 1,000 ML 15 ML IV ×3 (12:43→16:08)
--- NOTE | 2021-06-13 12:51 | OP.PCM_ITS ---
Problems Associated Problem List Diagnoses (1) Lumbar stenosis: Report of Operation Date of Procedure: 06/13/21 Pre-Operative Diagnosis: 1. Lumbar stenosis, spondylosis 2. Chronic back pain Post-Operative Diagnosis: 1. Lumbar stenosis, spondylosis 2. Chronic back pain Surgery/Procedure Performed:: 1. T9-10 partial bilateral laminectomies 2. Dorsal column stimulator paddle lead placement 3. Subcutaneous placement of dorsal column stimulator generator 4. 1 hour of complex programming postoperatively Description of Surgical Findings:: The patient is a 75-year-old female with intractable back and leg pain. She has tried and failed nonoperative treatments including medications, physical therapy and injections. The patient is opted for operative intervention understanding the risks to include but not limited to infection, bleeding, damage to nerves arteries and veins, possibility of spinal fluid leak, possibility of continued pain, need for further surgery, deep vein thrombosis, pulmonary embolism, heart attack, stroke or . The patient was identified in the preoperative holding area. There she received preoperative IV antibiotics Ancef and was then transferred to the operative suite. Once in the operative suite after general endotracheal anesthesia was established the patient was transferred to the [place] operating table in the prone position. All bony prominences were padded accordingly. The thoracolumbar spine was prepped and draped in a standard surgical fashion. An incision was made centered over the T9-10 interlaminar space and taken down to the thoracic fascia. The fascia was then divided and subperiosteal dissection was taken down to the level of the bilateral T9-10 facet joints. Partial bilateral laminectomies were performed at the T9-10 interspace. At this point a paddle lead was placed spanning from T8 inferiorly. It was then anchored to the fascia using standard anchors with silk suture. A 3 cm transverse incision was made over the sacroiliac region for a spinal cord stimulator generator/battery. The wires from the stimulator were then passed via subcutaneous passing device to the battery pocket and connected to a new generator battery. Both incisions were irrigated thoroughly with normal saline solution. The incisions were then closed with #1 Vicryl for the fascia, 2-0 Vicryl for subcutaneous and 2-0 nylon for skin. Sterile dressings were applied with 4 x 4's ABD and tape. Sponge instrument needle counts were correct at the end of the case. Neurophysiologic monitoring was maintained at baseline during the entire duration of the case. The patient was extubated and taken to the PACU without incident. Then 1 hour was spent with complex programming after the patient was recovered. Surgeon: Kenneth Claros Type of Anesthesia: General Specimen's removed: None Drains: None Estimated Blood Loss (mL): 10 cc Fluids Replaced: 1500 cc Grafts/Implants Used: [employer] Complications None Admit VTE Documentation VTE Present on Admission: No
--- NOTE | 2021-06-13 12:51 | PCM.PN.ORT ---
Subjective Subjective The patient was seen and examined postoperatively in the PACU. She is lying in bed resting comfortably. Her pain is controlled. She has no complaints including numbness tingling or weakness Objective Data Objective Data Vital Signs: Vital Signs Temp Pulse Resp BP Pulse Ox 97.9 F 69 18 120/69 96 06/13/21 12:27 06/13/21 12:27 06/13/21 12:27 06/13/21 12:27 06/13/21 12:27 Oxygen Delivery Method Room Air Weight: 242 lb 8.136 oz Body Mass Index (BMI) 41.6 Lab / Micro Data Micro: Microbiology 06/13/21 11:45 Interface Orders SARS-CoV-2 Antigen (Rapid) - Final Physical Exam Const alert, oriented x3 and no apparent distress General Appearance: cooperative and comfortable HEENT head/scalp atraumatic Eyes EOMs intact bilaterally and conjunctivae normal Neck full ROM General: normal visual inspection Chest inspection of chest normal Resp normal respiratory effort and normal air movement Cardio regular rate, regular rhythm and peripheral pulses 2+ throughout Peripheral Pulses: pulses 2+ throughout GI soft to palpation, non-tender and non-distended Back/Spine Back/Spine Narrative: Dressings clean dry and intact Cervical Spine: cervical ROM normal Thoracic Spine / Upper Back: normal to inspection Lumbar Spine / Lower Back: normal to inspection Extremity normal to inspection, full ROM, normal capillary refill, no clubbing, cyanosis or edema and no calf tenderness Peripheral Pulses: Yes pulses 2+ throughout Skin no rashes or lesions noted General Skin Exam: no breakdown Neuro oriented x3, CN's II-XII intact bilaterally, moves all extremities, no focal motor deficits, no sensory deficits noted and deep tendon reflexes 2+ bilaterally Motor Exam: strength 5/5 throughout and muscle tone normal throughout Assessment & Plan Assessment/Plan (1) Lumbar stenosis: PLAN: Okay to admit to floor See orders Discharge planning, likely to rehab tomorrow
--- NOTE | 2021-06-13 12:51 | PCM.DC.SUM ---
Providers Primary Care Physician: Dr. Cirspin Jhaveri MD Reason For Visit: thoracic 9-10 laminectomy Diagnosis Discharge Diagnosis (1) Lumbar stenosis: Status: Acute Code(s): M48.061 - Spinal stenosis, lumbar region without neurogenic claudication Plan: Okay to discharge See discharge instructions Follow-up with Dr. Claros in 3 weeks call for appointment Medications at Discharge Home Medications B12 Active 1,000 mcg PO BID 10/31/20 Entresto 1 tab PO BID 10/31/20 Pulmicort Flexhaler 2 inh INHALATION BID 10/31/20 Stiolto Respimat 2 puff INHALATION DAILY 10/31/20 Xeljanz 5 mg PO BID 10/31/20 albuterol sulfate 1 puff INHALATION Q6H PRN 10/31/20 atorvastatin 80 mg PO DAILY 10/31/20 benzonatate 200 mg PO BID PRN 10/31/20 calcium acetate(phosphat bind) 667 mg PO DAILY 10/31/20 cholecalciferol (vitamin D3) [Vitamin D3] 25 mcg PO BID 10/31/20 coenzyme Q10 [CoQ-10] 100 mg PO DAILY 10/31/20 duloxetine 60 mg PO QHS 10/31/20 folic acid 1 mg PO DAILY 10/31/20 furosemide 20 mg PO BID 10/31/20 glucosamine-chondroitin [Osteo Bi-Flex] 2 tab PO BID 10/31/20 montelukast 10 mg PO QHS 10/31/20 oxybutynin chloride 5 mg PO QHS 10/31/20 sotalol 80 mg PO Q12H 10/31/20 vitamin B complex 4 cap PO DAILY 10/31/20 zolpidem 5 mg PO QHS PRN 10/31/20 famotidine 20 mg PO BID 01/24/21 calcium acetate 1,334 mg PO QHS 06/03/21 glipizide 5 mg PO DAILY 06/03/21 vitamin B complex 5 cap PO QHS 06/03/21 hydrocodone-acetaminophen 1 tab PO BID PRN 06/05/21 echinacea-egan seal 2 cap PO PRN PRN 06/12/21 promethazine 12.5 mg PO Q6H PRN 06/12/21 hydrocodone-acetaminophen 1 tab PO Q6H 7 Days #28 tab 06/13/21 Hospital Course Operations - (T9-10 laminectomy, implantation of permanent spinal cord stimulator lead and generator) Summary of Care Provided Minutes Spent on Discharge: 15 Hospital Course: The patient is a 75-year-old female who underwent implantation of a permanent spinal cord stimulator on 06/13/2021. She was subsequently admitted. The hospitalist was consulted for medical management. She progressed well. Her pain was well controlled and she was mobilizing well. No significant medical issues were reported. She was subsequently discharged to rehab on 06/14/2021 to follow-up with Dr. Claros in 3 weeks Physical Exam Const alert, oriented x3 and no apparent distress General Appearance: cooperative and comfortable HEENT head/scalp atraumatic Eyes EOMs intact bilaterally and conjunctivae normal Neck full ROM General: normal visual inspection Chest inspection of chest normal Resp normal respiratory effort and normal air movement Cardio regular rate, regular rhythm and peripheral pulses 2+ throughout Peripheral Pulses: pulses 2+ throughout GI soft to palpation, non-tender and non-distended Back/Spine Back/Spine Narrative: Dressings clean dry and intact Cervical Spine: cervical ROM normal Thoracic Spine / Upper Back: normal to inspection Lumbar Spine / Lower Back: normal to inspection Extremity normal to inspection, full ROM, normal capillary refill, no clubbing, cyanosis or edema and no calf tenderness Skin no rashes or lesions noted General Skin Exam: no breakdown Neuro oriented x3, CN's II-XII intact bilaterally, moves all extremities, no focal motor deficits, no sensory deficits noted and deep tendon reflexes 2+ bilaterally Motor Exam: strength 5/5 throughout and muscle tone normal throughout Weight / BMI Weight Weight: 242 lb 8.136 oz Body Mass Index (BMI) 41.6 ABG / Lab / Microbiology Data Result Diagrams: 06/14/21 05:35 06/14/21 05:35 Microbiology: Microbiology 06/13/21 11:45 Interface Orders SARS-CoV-2 Antigen (Rapid) - Final D/C Instructions Discharge Diet: No restrictions Discharge Activity: - (See attached discharge instructions) Weight Bearing Status: Weight bearing as tolerated Lifting Restricted to (Lbs): 5 Additional Activity Instructions: See attached discharge instructions Call your doctor if your incision/area has: Continuous Slow Oozing, Sudden Increased Bleeding, Increased Pain/ Swelling, Increased Redness, Foul Smelling Discharge and Swelling at the incision site Call your doctor if you observe: Fever of 101 or Higher, Coldness, Increased Pain, Numbness or Tingling, Change in Color, Inability to urinate, Inability to have a bowel movement, Using more than 1 pad per hour, Shortness of breath, Dizziness, Fainting spells, Swelling in the ankles, Chest pain, Prolonged hiccupping, Increased palpitations (irregular heartbeat), Calf discomfort and Uncontrolled pain Change Dressing in: Daily Cleanse incision/area with: Do not get Incision Wet and Keep Dressing Clean & Dry Additional Dressing/Incision Instructions: Daily dry dressing changes with iodine to incisions Please Follow Up With: Kenneth Claros DO When: 3 weeks Meaningful Use Info Meaningful Use Diagnoses (Choose all that apply): None applicable Discharge Plan Admission Attending Provider: Kenneth Claros Primary Care Provider: Crispin Jhaveri Consulting Providers: Niharika Finley ; Sofy Dolan ; Jerry Jaramillo ; Michael Rae ; Goyo Lew ; Terrance Bowers ; Dario Malin ; Eliezer Doyle ; John Orosco ; Fidel Funes ; Giana Araiza ; Artem Rosales ; Sadaf Rivas ; Rodger Orr ; Daniel Prescott ; Michael Chakraborty ; Zhang Hagan ; Kym Singh ; Rina Rucker NP ; Josh Garay ; Adamaris Jones Instructions Additional Instructions / Restrictions: 1. During your procedure, you received sedation through your IV. Please follow these instructions for the next 24 hours: Do not drive a motor vehicle, do not drink any alcoholic beverages, and do not sign any legal documents or make personal or business decisions. A responsible adult should stay with you at least 6 hours after the procedure. 2. Keep your surgical site/incision clean and the dressing dry and intact. You may sponge bathe, but no showering or sitting in a bathtub during your trial or for one week after the permanent implant. You may use an ice pack at the surgical site to reduce any swelling or discomfort. 3. Monitor the incision site for any signs or symptoms of infection. Watch for redness, excessive swelling or drainage, or continued pain at the incision site after 3 days. Contact your physician immediately for a fever, chills or a temperature of 101.5? F or greater. 4. Take your medication exactly as prescribed by your physician. Do not attempt to wean yourself off any of your medications even though your pain is improving. This process needs to be carefully monitored by your doctor. Take any antibiotics prescribed exactly as directed and until they are gone. 5. Avoid stretching, bending, pulling, twisting or any sudden movements. Do not bend or twist at the waist. Do not raise your arms above your head; however, you may brush your hair or scratch your head, but nothing higher than that. Any movements higher than that could cause your electrode wires to move from their current position. No not lie on your stomach. Do not bend at the waist to put your shoes on; you must lift your legs up to do this. 6. No lifting greater than 5 pounds. A gallon of milk weighs more than 5 pounds, so you may not lift this. Try to be careful. Any falls could dislodge the leads. 7. Do not operate a motor vehicle, equipment or a power tool while your stimulator is on. If you need to use any equipment, you must turn your stimulator off first. As a passenger in a motor vehicle, you may use your stimulator. 8. Do not have any manipulation done by a chiropractor or any other physician without first consulting with the physician who placed your spinal cord stimulator. 9. Without movement, you may note changes in the intensity of the stimulator. For example, you may notice a different stimulation when you are standing than when you are sitting or lying down. This is normal the first few weeks following the implant and will stabilize over time. 10. Please contact our office if you are even scheduled for a CT scan or an MRI. 11. Please call us if you have any questions, problems or concerns. Discharge Orders/Prescriptions Prescriptions: New hydrocodone-acetaminophen 5-325 mg tablet 1 tab PO Q6H 7 Days Qty: 28 RF: 0 Continued atorvastatin 80 mg tablet 80 mg PO DAILY RF: 0 benzonatate 200 mg capsule 200 mg PO BID PRN (Reason: Cough) RF: 0 sotalol 80 mg tablet 80 mg PO Q12H RF: 0 oxybutynin chloride 5 mg tablet extended release 24hr 5 mg PO QHS RF: 0 folic acid 1 mg Tablet 1 mg PO DAILY RF: 0 montelukast 10 mg tablet 10 mg PO QHS RF: 0 zolpidem 5 mg tablet 5 mg PO QHS PRN (Reason: Insomnia) RF: 0 furosemide 20 mg tablet 20 mg PO BID RF: 0 albuterol sulfate 90 mcg/actuation HFA aerosol inhaler 1 puff INHALATION Q6H PRN (Reason: Wheezing) RF: 0 vitamin B complex Capsule 4 cap PO DAILY RF: 0 coenzyme Q10 [CoQ-10] 100 mg Capsule 100 mg PO DAILY RF: 0 glucosamine-chondroitin [Osteo Bi-Flex] 250-200 mg Tablet 2 tab PO BID RF: 0 calcium acetate(phosphat bind) 667 mg Capsule 667 mg PO DAILY RF: 0 duloxetine 60 mg capsule,delayed release(DR/EC) 60 mg PO QHS RF: 0 cholecalciferol (vitamin D3) [Vitamin D3] 25 mcg (1,000 unit) Tablet 25 mcg PO BID RF: 0 Pulmicort Flexhaler 180 mcg/actuation aerosol powdr breath activated 2 inh INHALATION BID RF: 0 Xeljanz 5 mg tablet 5 mg PO BID RF: 0 Stiolto Respimat 2.5-2.5 mcg/actuation mist 2 puff INHALATION DAILY RF: 0 Entresto 24-26 mg tablet 1 tab PO BID RF: 0 B12 Active 1,000 mcg Tablet,Chewable 1,000 mcg PO BID RF: 0 famotidine 20 mg Tablet 20 mg PO BID RF: 0 vitamin B complex Capsule 5 cap PO QHS RF: 0 calcium acetate 667 mg Tablet 1,334 mg PO QHS RF: 0 glipizide 2.5 mg Tablet Extended Release 24 Hr 5 mg PO DAILY RF: 0 hydrocodone-acetaminophen 5-325 mg Tablet 1 tab PO BID PRN (Reason: Pain) RF: 0 promethazine 12.5 mg Tablet 12.5 mg PO Q6H PRN (Reason: Nausea) RF: 0 echinacea-egan seal 250-200 mg Capsule 2 cap PO PRN PRN (Reason: Cold Symptoms) RF: 0 Discontinued aspirin [Aspirin Low Dose] 81 mg tablet,delayed release (DR/EC) 81 mg PO DAILY RF: 0 diphenhydramine-acetaminophen [Tylenol PM Extra Strength] 25-500 mg Tablet 2 tab PO QHS PRN (Reason: insom) RF: 0 Eliquis 5 mg tablet 5 mg PO Q12H RF: 0 acetaminophen [Tylenol Arthritis] 650 mg Tablet Extended Release 650 mg PO Q12H PRN (Reason: Pain) RF: 0 Referrals / Follow Up: Crispin Jhaveri MD [Primary Care Provider] - Disposition Disposition (needs filled in before D/C Order can be placed): Home, Self Care
[2021-06-13 12:55] LABS: Bedside Glucose 90 mg/dL (70-110)
[2021-06-13] MEDS: THROMBIN (RECOMBINANT) 20,000 UNIT VIAL 20000 UNIT TOPICAL (13:33)
[2021-06-13] MEDS: Cefazolin 2 GM in 0.9% Normal Saline 100 ML IV (13:36)
--- NOTE | 2021-06-13 13:39 | RAD_ITS ---
STUDY: INTRAOPERATIVE FLUOROSCOPY TECHNIQUE: The examination was performed with referring physician in attendance. Under fluoroscopic observation, fluoroscopic images were obtained. Radiologist was not present for the study. Radiologist did not perform the procedure. This dictation is for documentation of the radiation dosage only. There is no interpretation of the images. TOTAL NUMBER OF IMAGES: 1 COMPARISON: None RADIATION DOSE: 11.6 mGy FLUOROSCOPY TIME: 45.3 seconds REASON FOR EXAM: T9-T10 LAMINECTOMY, PERMANENT SPINAL CORD STIMULATOR IMPLANTATION Female, 75 years old. FINDINGS: Images of the lumbar spine. Metallic leads in the spinal canal may suggest spinal stimulator leads. RAD/Thoracic Spine 2 Views IMPRESSION: Fluoroscopic assistance images were obtained. Dictation for documentation purposes only. Electronically Signed: Mack Rae MD at 15:10 EST ,
[2021-06-13] MEDS: Bupivacaine 0.25% 30 ML Vial (15:38)
[2021-06-13 16:00] LABS: Bedside Glucose 76 mg/dL (70-110)
--- NOTE | 2021-06-13 17:03 | SUR.PHASEI ---
thigh high teds applied in PACU
--- NOTE | 2021-06-13 17:08 | SUR.PHASEI ---
Spinal cord stim box at patient's bedside; rep to report to room tomorrow; 06/14/2020 to turn device on.
[2021-06-13] MEDS: Furosemide 20 MG Tablet PO (18:30)
--- NOTE | 2021-06-13 19:24 | PCS.PANDOC ---
PANDEMIC DOCUMENTATION INITIATED: Date: 12/31/2020 Time: 190
[2021-06-13] MEDS: Budesonide Respules 0.5 MG/2 ML AMPUL.NEB. INHALATION (20:26)
[2021-06-13] MEDS: Ipratropium/Albuterol Sulfate 3 ML AMPUL.NEB INHALATION (20:26)
[2021-06-13] MEDS: Cyanocobalamin 500 MCG Tablet 1000 MCG PO (21:38)
[2021-06-13] MEDS: SACUBITRIL/VALSARTAN 24/26 MG TABLET 1 EACH PO (21:38)
[2021-06-13] MEDS: Montelukast 10 MG Tablet PO (21:38)
[2021-06-13] MEDS: Sotalol Hydrochloride 80 MG Tablet PO (21:38)
[2021-06-13] MEDS: Famotidine 20 MG Tablet PO (21:38)
[2021-06-13] MEDS: Atorvastatin Calcium 80 MG Tablet PO (21:38)
[2021-06-13] MEDS: Tolterodine Tartrate 2 MG CAP.SA PO (21:39)
[2021-06-13] MEDS: Cholecalciferol (VIT D3) 25 MCG TABLET (1,000 UNITS) PO (21:39)
[2021-06-13] MEDS: DULoxetine Hcl 60 MG Capsule PO (21:39)
[2021-06-13] MEDS: Lactated Ringers 1,000 ML 100 ML IV (21:42)
[2021-06-13] MEDS: Cefazolin 1 GM/50 ML BAG IV (21:42)
--- NOTE | 2021-06-13 21:42 | PN.HOSP_ITS ---
Subjective Subjective Patient seen and examined. Patient lying in bed no distress noted. Patient ambulating to bathroom following assessment with assist of 2. Patient denies pain. Objective Data Objective Data Vital Signs: Vital Signs Temp Pulse Resp BP Pulse Ox 97.7 F L 74 16 135/86 H 97 06/13/21 20:05 06/13/21 20:27 06/13/21 20:27 06/13/21 20:05 06/13/21 20:05 Oxygen Flow Rate (L/min) 3 Oxygen Delivery Method Nasal Cannula Weight: 242 lb 8.136 oz Body Mass Index (BMI) 41.6 Intake & Output: Intake and Output for Last 24 Hours 06/11/21 06/12/21 06/13/21 23:59 23:59 23:59 Intake Total 2110 / 2110 Output Total 300 / 300 Balance 1810 / 1810 Lab / Micro Data Labs: Laboratory Results - last 24 hr 06/13/21 12:35: POC Glucose 90 06/13/21 15:56: POC Glucose 76 Micro: Microbiology 06/13/21 11:45 Interface Orders SARS-CoV-2 Antigen (Rapid) - Final Physical Exam Const alert, oriented x3 and no apparent distress HEENT head/scalp atraumatic Head and Scalp: normocephalic Eyes conjunctivae normal Neck supple General: trachea midline Resp normal respiratory effort Effort and Inspection: able to speak in complete sentences and symmetric chest movement Auscultation: diminished lung sounds Cardio regular rate, regular rhythm, S1 normal heart sound and S2 normal heart sound GI normal to inspection, nondistended, normoactive bowel sounds, soft to palpation and non-tender Extremity normal to inspection and no clubbing, cyanosis or edema Peripheral Pulses: Yes pulses 2+ throughout Skin no rashes or lesions noted, no wounds and skin turgor normal Wound Narrative: Postop dressings dry and intact to midline back. Incision not visualized at this time Neuro oriented x3, moves all extremities, no focal motor deficits and no sensory deficits noted Sensorium / Orientation: awake and alert Speech: speech normal Psych affect normal Assessment & Plan Assessment/Plan (1) Diabetes: QUALIFIERS: Diabetes mellitus type: type 2 Diabetes mellitus detention insulin use: without intermediate frame tender use (2) COPD (chronic obstructive pulmonary disease): QUALIFIERS: COPD type: unspecified COPD Qualified Code(s): J44.9 - Chronic obstructive pulmonary disease, unspecified PLAN: 1. Status post T9-T10 partial bilateral laminectomies dorsal column stimulator paddle lead placement, subcutaneous placement of dorsal column stimulator generator -Pain management regimen ordered per orthospine MD -Postop day zero -PT and OT to eval and treat 2. COPD -Continue patient's home inhaler regimen -Patient symptoms currently stable 3. Atrial fibrillation -Continue sotalol 4. Hypertension -Vital signs per protocol, trend BP and heart rate -Vital signs stable, continue Entresto 5. Chronic kidney disease stage IIIa -Continue home medication regimen of calcium acetate -BMP daily 6. Congestive heart failure -continue Lasix -Daily weights 7. Diabetes mellitus type 2 -Continue glipizide -Before meals and at bedtime blood sugars 8. Rheumatoid arthritis -Continue Xeljanz DVT prophylaxis-SCDs This patient was seen by Kym Singh NP-Janny under the supervision of Dr. Dolan. 12 minutes spent in clinical coordination of patient's plan of care.
[2021-06-13] MEDS: Acetaminophen 325 MG Tablet 650 MG PO (21:45)
[2021-06-13] MEDS: oxyCODONE 5 MG Tablet PO (21:46)
[2021-06-14] VITALS (8 sets, daily range): BP systolic 99–139; BP diastolic 47–80; PULSE 70–98; RESP 15–18; TEMP 36.6–37.7; O2SAT 90–95; BMI 41.6
[2021-06-14] MEDS: oxyCODONE 5 MG Tablet PO ×3 (02:10→20:03)
[2021-06-14 02:21] LABS: Bedside Glucose 106 mg/dL (70-110)
--- NOTE | 2021-06-14 04:35 | CPS ---
pt is on own cpap machine with 4L O2 bled in
[2021-06-14 05:56] LABS: Absolute Lymphocyte Count 0.36 X10^3/uL (0.83-4.51); Absolute Neutrophil Count 5.2 X10^3/uL (2.0-7.7); Basophil# 0.02 X10^3/uL; Basophil% 0.3 % (0-1); Eosinophil# 0.06 X10^3/uL; Eosinophils% 0.9 % (0-5); Hematocrit 32.1 % (37-47); Hemoglobin 10.3 g/dL (12.0-15.0); Lymphocyte # 0.36 X10^3/ul (0.83-4.51); Lymphocyte % 5.4 % (19-41); Mean Corp Hgb Conc 32.1 g/dL (32-36); Mean Corpuscular Hgb 30.8 pg (27.0-32.0); Mean Corpuscular Volume 96.1 fL (81-99); Mean Platelet Vol. 8.4 fl (6.2-12.0); Monocyte# 0.99 X10^3/uL; NRBC Flagged by Analyzer 0 % (0-5); Neutrophil # 5.16 X10^3/uL (2.7-7.7); Neutrophil % 77.9 % (47-70); POSITIVE DIFFERENTIAL YES; Platelet Count 150 K/mm3 (150-450); RBC Distribution Width CV 14.2 % (11.6-14.6); RBC Distribution Width SD 50.3 fl (35.1-43.9); Red Blood Count 3.34 M/mm3 (4.2-5.4); White Blood Count 6.6 K/mm3 (4.4-11.0)
[2021-06-14 06:06] LABS: Differential Indicated SCAN CRITERIA MET
[2021-06-14] MEDS: Cefazolin 1 GM/50 ML BAG IV (06:06)
[2021-06-14 06:11] LABS: Bedside Glucose 142 mg/dL (70-110)
[2021-06-14 06:32] LABS: Anion Gap 6 (5-15); BUN 17 mg/dL (7-18); BUN/Creat Ratio 17.1 RATIO (10-20); Calcium,Total 8.6 mg/dL (8.5-10.1); Chloride 102 mmol/L (98-107); Differential Comment SCANNED; EST Glomerular Filtration Rate 57 mL/min (>60); Est Glom Filt Rate - Afr Amer 70 mL/min (>60); Estimated Creatinine Clearance 41.33 ml/min; Glucose 135 mg/dL (74-106); Potassium 3.7 mmol/L (3.5-5.1); Sodium Level 137 mmol/L (136-145)
[2021-06-14] MEDS: Ipratropium/Albuterol Sulfate 3 ML AMPUL.NEB INHALATION ×2 (06:49→19:55)
[2021-06-14] MEDS: Budesonide Respules 0.5 MG/2 ML AMPUL.NEB. INHALATION ×2 (06:49→19:55)
--- NOTE | 2021-06-14 07:28 | PCM.PN.HOSP ---
Objective Data Objective Data Vital Signs: Vital Signs Temp Pulse Resp BP Pulse Ox 98 F 75 15 139/80 H 94 06/14/21 02:05 06/14/21 06:53 06/14/21 06:53 06/14/21 02:05 06/14/21 06:53 Oxygen Flow Rate (L/min) 4 Oxygen Delivery Method Nasal Cannula Weight: 111.8 kg Body Mass Index (BMI) 41.6 Intake & Output: Intake and Output for Last 24 Hours 06/12/21 06/13/21 06/14/21 23:59 23:59 23:59 Intake Total 2243.5 / 2243.5 496.67 / 496.67 Output Total 300 / 300 Balance 1943.5 / 1943.5 496.67 / 496.67 Lab / Micro Data Result Diagrams: 06/14/21 05:35 06/14/21 05:35 Labs: Laboratory Results - last 24 hr 06/13/21 12:35: POC Glucose 90 06/13/21 15:56: POC Glucose 76 06/14/21 02:14: POC Glucose 106 06/14/21 05:35: WBC 6.6, RBC 3.34 L, Hgb 10.3 L, Hct 32.1 L, MCV 96.1, MCH 30.8, MCHC 32.1, RDW Std Deviation 50.3 H, RDW Coeff of Amrita 14.2, Plt Count 150, MPV 8.4, Immature Gran % (Auto) 0.500, Neut % (Auto) 77.9 H, Lymph % (Auto) 5.4 L, [place] % (Auto) 15.0 H, Eos % (Auto) 0.9, Baso % (Auto) 0.3, Absolute Neuts (auto) 5.2, Absolute Lymphs (auto) 0.36 L, Nucleated RBC % 0, Differential Comment SCANNED 06/14/21 05:35: Sodium 137, Potassium 3.7, Chloride 102, Carbon Dioxide 29.0, Anion Gap 6, BUN 17, Creatinine 1.00, Estim Creat Clear Calc 41.33, Est GFR (MDRD) Af Amer 70, Est GFR (MDRD) Non-Af 57 L, BUN/Creatinine Ratio 17.1, Glucose 135 H, Calcium 8.6 06/14/21 06:05: POC Glucose 142 H Micro: Microbiology 06/13/21 11:45 Interface Orders SARS-CoV-2 Antigen (Rapid) - Final Assessment & Plan Assessment/Plan (1) Diabetes: QUALIFIERS: Diabetes mellitus type: type 2 Diabetes mellitus manager long term care insulin use: without manager long term care use (2) COPD (chronic obstructive pulmonary disease): QUALIFIERS: COPD type: unspecified COPD Qualified Code(s): J44.9 - Chronic obstructive pulmonary disease, unspecified PLAN: 1. Status post T9-T10 partial bilateral laminectomies dorsal column stimulator paddle lead placement, subcutaneous placement of dorsal column stimulator generator -Pain management regimen ordered per orthospine MD -Postop day zero -PT and OT to eval and treat 2. COPD -Continue patient's home inhaler regimen -Patient symptoms currently stable 3. Atrial fibrillation -Continue sotalol 4. Hypertension -Vital signs per protocol, trend BP and heart rate -Vital signs stable, continue Entresto 5. Chronic kidney disease stage IIIa -Continue home medication regimen of calcium acetate -BMP daily 6. Congestive heart failure -continue Lasix -Daily weights 7. Diabetes mellitus type 2 -Continue glipizide -Before meals and at bedtime blood sugars 8. Rheumatoid arthritis -Continue Xeljanz DVT prophylaxis-SCDs This patient was seen by MIGUELINA Peñaloza under the supervision of Dr. Dolan. 12 minutes spent in clinical coordination of patient's plan of care.
--- NOTE | 2021-06-14 07:46 | PN.HOSP_ITS ---
Subjective Subjective Does not have chest pain or shortness of breath. Patient walking to bathroom And is spontaneously voided 3 times. Objective Data Objective Data Vital Signs: Vital Signs Temp Pulse Resp BP Pulse Ox 98 F 75 15 139/80 H 94 06/14/21 02:05 06/14/21 06:53 06/14/21 06:53 06/14/21 02:05 06/14/21 06:53 Oxygen Flow Rate (L/min) 4 Oxygen Delivery Method Nasal Cannula Weight: 246 lb 7.629 oz Body Mass Index (BMI) 41.6 Intake & Output: Intake and Output for Last 24 Hours 06/12/21 06/13/21 06/14/21 23:59 23:59 23:59 Intake Total 2243.5 / 2243.5 496.67 / 496.67 Output Total 300 / 300 Balance 1943.5 / 1943.5 496.67 / 496.67 Lab / Micro Data Result Diagrams: 06/14/21 05:35 06/14/21 05:35 Labs: Laboratory Results - last 24 hr 06/13/21 12:35: POC Glucose 90 06/13/21 15:56: POC Glucose 76 06/14/21 02:14: POC Glucose 106 06/14/21 05:35: WBC 6.6, RBC 3.34 L, Hgb 10.3 L, Hct 32.1 L, MCV 96.1, MCH 30.8, MCHC 32.1, RDW Std Deviation 50.3 H, RDW Coeff of Amrita 14.2, Plt Count 150, MPV 8.4, Immature Gran % (Auto) 0.500, Neut % (Auto) 77.9 H, Lymph % (Auto) 5.4 L, [place] % (Auto) 15.0 H, Eos % (Auto) 0.9, Baso % (Auto) 0.3, Absolute Neuts (auto) 5.2, Absolute Lymphs (auto) 0.36 L, Nucleated RBC % 0, Differential Comment SCANNED 06/14/21 05:35: Sodium 137, Potassium 3.7, Chloride 102, Carbon Dioxide 29.0, Anion Gap 6, BUN 17, Creatinine 1.00, Estim Creat Clear Calc 41.33, Est GFR (MDRD) Af Amer 70, Est GFR (MDRD) Non-Af 57 L, BUN/Creatinine Ratio 17.1, Glucose 135 H, Calcium 8.6 06/14/21 06:05: POC Glucose 142 H Micro: Microbiology 06/13/21 11:45 Interface Orders SARS-CoV-2 Antigen (Rapid) - Final Physical Exam Narrative General: Alert, Oriented x3, Cooperative HEENT: Atraumatic, PERRLA, EOMI, Normocephalic Oral: No Gingival or Mucosal Lesions/ Ulcerations Neck: Supple, No JVD, Negative Carotid Bruits Lungs: Air entry diminished in bilateral lung bases. No crepitation/rhonchi Cardiovascular: Left-sided AICD. Sinus rhythm, Normal S1, Normal S2, No murmurs Abdomen: Bowel Sounds Present, Soft, Non Tender, Non-Distended : No renal angle tenderness. No suprapubic tenderness. Extremities: No edema, Capillary Refill Less than 3 Seconds Skin: No rashes, No breakdown Musculoskeletal spine: Lower thoracic and lumbar dressing are dry. Mild expected tenderness over surgical site. Neurological: Cranial nerves II-XII grossly intact, DTR 2+/4, chronic left sciatica paresthesia Psych/Mental Status: Normal Affect, Appropriate. Assessment & Plan Assessment/Plan (1) Diabetes: QUALIFIERS: Diabetes mellitus snf insulin use: without adjunct faculty for medical terminology use Diabetes mellitus type: type 2 (2) COPD (chronic obstructive pulmonary disease): QUALIFIERS: COPD type: unspecified COPD Qualified Code(s): J44.9 - Chronic obstructive pulmonary disease, unspecified PLAN: 1. Chronic back pain and lumbar stenosis, spondylosis: Patient had T9-T10 partial bilateral laminectomies dorsal column stimulator paddle lead atilio cement, subcutaneous placement of dorsal column stimulator generator on 06/13/2021. PT OT. Pain management and VT prophylaxis as per operating surgeon. 2. COPD -Continue patient's home inhaler regimen -Patient symptoms currently stable 3. Atrial fibrillation patient has AICD. -Continue sotalol 4. Hypertension: Blood pressure is normal. Continue home medications Entresto. 5. Chronic kidney disease stage IIIa -Continue home medication regimen of calcium acetate -BMP daily 6. Congestive heart failure -continue Lasix. Note 2D echo in our EMR. Patient does not have any symptoms of acute heart failure. -Daily weights monitor 7. Diabetes mellitus type 2. Glucose in acceptable limit. A1c 11/04/2020 5.6%. -Continue glipizide -Continue Accu-Cheks before meals and at bedtime blood sugars 8. Rheumatoid arthritis -Continue Xeljanz DVT prophylaxis-SCDs Charges/Coding Visit Charges Inpatient E&M: 18723 Subs Hosp L2
[2021-06-14] MEDS: Folic Acid 1 MG Tablet PO (08:30)
[2021-06-14] MEDS: glipiZIDE XL 5 MG Tablet PO (08:30)
[2021-06-14] MEDS: Cyanocobalamin 500 MCG Tablet 1000 MCG PO ×2 (08:31→22:09)
[2021-06-14] MEDS: Cholecalciferol (VIT D3) 25 MCG TABLET (1,000 UNITS) PO ×2 (08:31→22:09)
[2021-06-14] MEDS: Famotidine 20 MG Tablet PO ×2 (08:32→22:09)
[2021-06-14] MEDS: Ensure Surgery 237 ML LIQUID PO ×3 (08:36→17:09)
[2021-06-14] MEDS: SACUBITRIL/VALSARTAN 24/26 MG TABLET 1 EACH PO ×2 (10:51→22:09)
[2021-06-14] MEDS: Sotalol Hydrochloride 80 MG Tablet PO ×2 (10:51→22:10)
[2021-06-14] MEDS: Furosemide 20 MG Tablet PO ×2 (10:51→17:07)
--- NOTE | 2021-06-14 10:58 | CASEMGMT ---
Social Work Note SW reviewed chart, pt wishes to discharge to [facility]. SW placed a call to Hailee at [facility] and updated her that referral will be sent, pt should be medically ready for discharge today. Brook Leung SAMPLE BOX MAKER, REFRIGERATION HOUSEMAN
[2021-06-14 11:15] LABS: Bedside Glucose 138 mg/dL (70-110)
--- NOTE | 2021-06-14 12:01 | CASEMGMT ---
Social Work Per PETRA Doe pt requesting to go to [facility]. Referral faxed. Will awaited determination of acceptance. BRANDON Marquez
--- NOTE | 2021-06-14 14:15 | CASEMGMT ---
Social Work Note PETRA placed a call to Hailee at [facility] regarding referral. Hailee states they are able to accept pt today. PETRA updated physician. SW in to speak with pt. SW introduced self and role at [facility]. SW updated pt that [facility] is able to accept pt, pt will be discharged to [facility] today. Pt states that her granddaughter will be able to transport pt today, but will not be at [facility] until 8-8:30pm. SW to fax discharge paperwork once completed. Plan: [facility] skilled today Brook Leung HEAD WAITRESS, TRAUMA DIRECTOR
--- NOTE | 2021-06-14 15:22 | CASEMGMT ---
Social Work Note PETRA placed a call to Hailee at [facility] and let her know that pt is still to discharge to [facility] today. Discharge paperwork to be faxed once completed. PETRA informed Hailee that pt's granddaughter is transporting pt around 8-8:30pm. Hailee states understanding. PETRA completed PAS/RR in HENS. RN updated Plan: [facility] skilled under PAS/RR level of care. Pt's granddaughter to transport pt at 8-8:30pm Brook Leung UPHOLSTERY TECHNICIAN, RADIAL DRILL PRESS OPERATOR
--- NOTE | 2021-06-14 16:15 | CASEMGMT ---
Social Work Note SW faxed completed discharge paperwork to [facility] including transfer to extended care facility, signed medication list, any scripts, PAS/RR, PAS/RR Results, and COVID test/tool. Original in SNF folder and copy on pt's chart. PETRA completed PAS/RR in [facility]. Original in SNF folder and copy on pt's chart. PETRA updated RN that pt is good to discharge once pt's granddaughter arrives at [facility] to transport pt. Plan: [facility] skilled today under PAS/RR level of care with pt's granddaughter transporting pt. [employer], C[employer] OUT [employer]ER
[2021-06-14 17:21] LABS: Bedside Glucose 111 mg/dL (70-110)
--- NOTE | 2021-06-14 18:44 | NURSING ---
REPORT CALLLED TO PARMINDER AT [facility].
[2021-06-14] MEDS: Montelukast 10 MG Tablet PO (22:09)
[2021-06-14] MEDS: Atorvastatin Calcium 80 MG Tablet PO (22:09)
[2021-06-14] MEDS: Tolterodine Tartrate 2 MG CAP.SA PO (22:10)
[2021-06-14] MEDS: DULoxetine Hcl 60 MG Capsule PO (22:10)
[2021-06-14 22:56] LABS: Bedside Glucose 75 mg/dL (70-110)
[2021-06-14 22:56] LABS: Bedside Glucose 64 mg/dL (70-110)
== END 2021-06-14 23:35 | disposition skilled nursing facility (03) ==
LOC: SDC 06-14 08:50 → MS3 06-14 08:50
PROVIDERS: Nurse Practitioner Family; Admitting Provider Internal Medicine; PCP Internal Medicine; Referring Provider Orthopaedic Surgery; Visit Provider Internal Medicine
PROC: (CPT 63030; principal; 2021-06-13 12:45)
DX: Z45.42 Encounter for adjustment and management of neurostimulator (principal); M06.9 Rheumatoid arthritis, unspecified; J44.9 Chronic obstructive pulmonary disease, unspecified; I13.0 Hypertensive heart and chronic kidney disease with heart failure and stage 1 through stage 4 chronic kidney disease, or unspecified chronic kidney disease; I50.22 Chronic systolic (congestive) heart failure; E11.22 Type 2 diabetes mellitus with diabetic chronic kidney disease; I48.0 Paroxysmal atrial fibrillation; E66.01 Morbid (severe) obesity due to excess calories; Z68.41 Body mass index [BMI] 40.0-44.9, adult; N18.31 Chronic kidney disease, stage 3a; M48.061 Spinal stenosis, lumbar region without neurogenic claudication; M47.816 Spondylosis without myelopathy or radiculopathy, lumbar region; F41.9 Anxiety disorder, unspecified; Z95.810 Presence of automatic (implantable) cardiac defibrillator; G47.33 Obstructive sleep apnea (adult) (pediatric); G89.29 Other chronic pain; F32.A Depression, unspecified; E78.5 Hyperlipidemia, unspecified; Z79.51 Long term (current) use of inhaled steroids; K21.9 Gastro-esophageal reflux disease without esophagitis; M51.36 Other intervertebral disc degeneration, lumbar region; M41.86 Other forms of scoliosis, lumbar region; Z79.01 Long term (current) use of anticoagulants; Z79.82 Long term (current) use of aspirin; Z79.899 Other long term (current) drug therapy; M79.7 Fibromyalgia
CPT/HCPCS: 63685; 63655; 95972; 36415; 72070; 76000; 80048; 82962; 85025; 87426; 94640; 96361; 96365; 96366; 97162; 97166; 99218; 99251; C1778; C1820; J7120; G0378; G0463; J0330; J2405

== ENCOUNTER 2022-09-01 07:56 | Day surgery (SDC) | payer MEDICARE, BC, SELFPAY ==
[2022-09-01 08:28] VITALS: BP 144/71; PULSE 77; RESP 16; TEMP 36.6; O2SAT 95; BMI 42.7
[2022-09-01] MEDS: Lactated Ringers 1,000 ML 15 ML IV (08:35)
[2022-09-01] MEDS: Lidocaine 1% (30 ml sdv) 30 ML Vial (09:05)
[2022-09-01] MEDS: MethylPREDNISolone Acetate 80 MG/ML Vial (09:05)
[2022-09-01 09:16] LABS: Bedside Glucose 106 mg/dL (74-106)
--- NOTE | 2022-09-01 09:46 | RAD_ITS ---
STUDY: X-RAY - SACROILIAC JOINTS REASON FOR EXAM: Female, 77 years old. Intraprocedural digital documentation views. TECHNIQUE: 3 intraprocedural digital documentation view(s) of the sacroiliac joints were obtained. COMPARISON: None. FINDINGS: 3 views show injection of contrast over the inferior portion of the left sacroiliac joint. RAD/S-I Jts 3 or More Views IMPRESSION: Intraprocedural digital documentation images. Electronically Signed: Michael Benjamin, at 10:47 EDT ,
[2022-09-01 09:58] VITALS: BP 144/71; BP 92/67; PULSE 61; RESP 18; TEMP 36.8; O2SAT 94
[2022-09-01 10:00] VITALS: BP 144/71; BP 96/84; PULSE 65; RESP 18; O2SAT 97
[2022-09-01 10:05] VITALS: BP 100/85; BP 144/71; PULSE 65; RESP 18; O2SAT 96
[2022-09-01 10:12] VITALS: BP 124/70; BP 144/71; PULSE 60; RESP 18; TEMP 35.6; O2SAT 100
--- NOTE | 2022-09-01 10:14 | PCM.OPRPT ---
Report of Operation Date of Procedure: 09/01/22 Description of Surgical Findings:: PREOPERATIVE DIAGNOSES: 1. Sacroiliitis. 2. Sacroiliac joint dysfunction. POSTOPERATIVE DIAGNOSES: 1. Sacroiliitis. 2. Sacroiliac joint dysfunction. PROCEDURE PERFORMED: Bilateral sacroiliac joint steroid injection under fluoroscopy guidance. ANESTHESIA: MAC. BLOOD LOSS: Minimal. COMPLICATIONS: None. DESCRIPTION OF PROCEDURE: History and physical of today was reviewed. Risks and benefits of the procedure were explained. The patient understood and agreed to the procedure. Informed consent was obtained. IV inserted per routine protocol. The patient was taken to the operating room and placed in the prone position with a pillow positioned underneath the abdomen. The lower back and buttock area was prepped and draped in a sterile fashion using iodine x3. Under fluoroscopy guidance on an AP view, the bilateral SI joint was visualized. The skin and subcutaneous tissue was anesthetized with approximately 5 mL of 1% lidocaine using a 25-gauge regular needle. Under direct visualization with fluoroscopy at approximately 15-degree angle, using a 22-gauge 3-1/2-inch spinal needle, the needle was advanced via the skin. The tip of the needle was maneuvered and directed towards the inferior one-third of the posterior SI joint. Once the tip of the needle was at the vicinity of the joint, after negative aspiration for blood or CSF, a total of 1 mL of contrast was injected to confirm correct placement of the needle as well as cephalocaudal spread. Confirmation was obtained on AP as well as oblique view. After repeated negative aspiration and confirmation, a total of 4 mL of preservative-free 0.25% Marcaine with 40 mg of Depo-Medrol was injected in and around the SI joint and the same was repeated to the opposite side. The needle was then removed intact. The patient experienced no sign or symptoms of intrathecal or intravascular injection. The patient experienced no paresthesia. The procedure was completed without any apparent difficulty or any complications. The patient appeared to tolerate it well. ASSESSMENT AND PLAN: This is a 77-year-old female with bilateral sacral ileitis sacroiliac joint dysfunction status post bilateral sacroiliac joint steroid injection under fluoroscopic guidance, patient will continue her current medications, patient will follow up in approximately 2 weeks for reevaluation.
[2022-09-01 10:29] VITALS: BP 144/71
== END 2022-09-01 10:42 | disposition home or self-care (01) ==
LOC: SDC 07:58 → AC 07:59
PROVIDERS: PCP Internal Medicine; Referring Provider Anesthesiology Pain Medicine; Visit Provider Anesthesiology Pain Medicine
PROC: 3E0U3BZ Introduction of Anesthetic Agent into Joints, Percutaneous Approach (ICD-10-PCS; CPT 64451; principal; 2022-09-01 09:45)
DX: M46.1 Sacroiliitis, not elsewhere classified (principal); J44.9 Chronic obstructive pulmonary disease, unspecified; E11.9 Type 2 diabetes mellitus without complications; Z96.611 Presence of right artificial shoulder joint; M48.061 Spinal stenosis, lumbar region without neurogenic claudication; R23.8 Other skin changes; G47.30 Sleep apnea, unspecified; I10 Essential (primary) hypertension; Z95.810 Presence of automatic (implantable) cardiac defibrillator
CPT/HCPCS: 20610; 00640; 64483; 72202; 82962; J7120

== ENCOUNTER 2022-10-20 10:51 | Day surgery (SDC) | payer MEDICARE, BC, SELFPAY ==
[2022-10-20] VITALS (8 sets, daily range): BP systolic 124–150; BP diastolic 76–98; PULSE 66–81; RESP 16–18; TEMP 36.1–36.6; O2SAT 93–99; BMI 41.5
[2022-10-20] MEDS: Lactated Ringers 1,000 ML 15 ML IV (11:44)
--- NOTE | 2022-10-20 12:08 | RAD_ITS ---
PROCEDURE: Right L3-S1 medial branch nerve block. DATE OF EXAMINATION: October 20, 2022. INDICATION: Female, 77 years old. Chronic low back pain. FLUOROSCOPY TIME (if supplied): (19 seconds) minutes/seconds. 4 images. 7.47 mGy RAD/Spine 1 View Any Level IMPRESSION: Intraoperative imaging provided for right L3-S1 medial branch nerve block. Electronically Signed: Tanner Velez MD at 15:38 EDT ,
[2022-10-20] MEDS: MethylPREDNISolone Acetate 80 MG/ML Vial (12:13)
[2022-10-20] MEDS: Lidocaine 1% (5 ml sdv) 5 ML Vial (12:14)
[2022-10-20 12:23] LABS: Bedside Glucose 110 mg/dL (74-106)
--- NOTE | 2022-10-20 13:09 | OP.PCM_ITS ---
Report of Operation Date of Procedure: 10/20/22 Description of Surgical Findings:: PROCEDURE: Right-sided lumbar medial branch block at L4, L5, S1 PREOPERATIVE DIAGNOSIS: Lumbar spondylosis, lumbar degenerative disc disease, and lumbar facet arthropathy POSTOPERATIVE DIAGNOSIS: Lumbar spondylosis, lumbar degenerative disc disease, and lumbar facet arthropathy ANESTHESIA: MAC COMPLICATIONS: None BLOOD LOSS: Minimal PROCEDURE IN DETAIL: History and physical today was reviewed. Risks and benefits of the procedure were explained. The patient understood, agreed to our procedure, and informed consent was obtained. IV inserted per routine protocol. The patient was taken to the operating room, placed in a prone position with a pillow positioned underneath the abdomen. The right side of his lower back was prepped and draped in a sterile fashion using iodine x3. Under fluoroscopy guidance, on AP view, L3 through S1 vertebral bodies were visualized. Skin and subcutaneous tissues were anesthetized with approximately 5 mL of 1% lidocaine using a 25-gauge regular needle. Under direct visualization with fluoroscopy at approximately 25-degree angle, starting on the right L3, ending on the right S1, passing through the L4-L5 using a 22-gauge 3 1/2-inch spinal needle, the needle was advanced via the skin. The tip of the needle was maneuvered and directed towards the superior and medial gutter of the transverse process at the vicinity of the medial branch. Once the tip of the needle was in contact with the bone, the needle pulled approximately 2 mm off the bone. After negative aspiration of blood with CSF and confirmation of AP as well as oblique view, a total of 8 mL of preservative-free 0.25% Marcaine with 80 mg of Depo- Medrol was injection in divided doses between those 4 levels. The needles were then removed intact. The patient experienced no signs or symptoms intrathecal, intravascular injection. The patient experienced no paraesthesia. The procedure was completed without any apparent difficult, any complication. The patient appeared to tolerate well. ASSESSMENT AND PLAN: This is a 77-year-old female with lumbar spondylosis, lumbar degenerative disc disease, and lumbar facet arthropathy, status post right-sided lumbar medial branch block at L4-S1. The patient will continue her current medications. The patient will follow in approximately 1 to 2 weeks for reevaluation..
== END 2022-10-20 13:42 | disposition home or self-care (01) ==
LOC: SDC 10:54 → AC 10:56
PROVIDERS: PCP Internal Medicine; Referring Provider Anesthesiology Pain Medicine; Visit Provider Anesthesiology Pain Medicine
PROC: 3E0S3BZ Introduction of Anesthetic Agent into Epidural Space, Percutaneous Approach (ICD-10-PCS; CPT 62322; principal; 2022-10-20 12:45)
DX: M47.816 Spondylosis without myelopathy or radiculopathy, lumbar region (principal); M51.36 Other intervertebral disc degeneration, lumbar region; I10 Essential (primary) hypertension; I25.10 Atherosclerotic heart disease of native coronary artery without angina pectoris
CPT/HCPCS: 64493; 64494; 64483; 72020; 82962; J7120

== ENCOUNTER → 2024-02-19 | Outpatient (CLI) | payer MEDICARE, BC, SELFPAY ==
[2024-02-19 12:46] LABS: Absolute Lymphocyte Count 1.12 X10^3/uL (0.83-4.51); Basophil# 0.04 X10^3/uL; Basophil% 0.8 % (0-1); Eosinophil# 0.23 X10^3/uL; Eosinophils% 4.4 % (0-5); Hematocrit 41.6 % (37-47); Hemoglobin 13.3 g/dL (12.0-15.0); Lymphocyte # 1.12 X10^3/ul (0.83-4.51); Lymphocyte % 21.4 % (19-41); Mean Corpuscular Volume 93.7 fL (81-99); Monocyte# 0.87 X10^3/uL; Monocyte% 16.6 % (0-10); NRBC Flagged by Analyzer 0 % (0-5); Neutrophil # 2.96 X10^3/uL (2.7-7.7); Neutrophil % 56.6 % (47-70); Platelet Count 166 K/mm3 (150-450); RBC Distribution Width CV 12.8 % (11.6-14.6); RBC Distribution Width SD 44.3 fl (35.1-43.9); Red Blood Count 4.44 M/mm3 (4.2-5.4); White Blood Count 5.2 K/mm3 (4.4-11.0)
[2024-02-19 12:51] LABS: Erythrocyte Sedimentation Rate 6 mm/hr (0-30)
[2024-02-19 13:28] LABS: ALB/GLOB Ratio 1.1 RATIO (0.9-2.4); AST(SGOT) 30 U/L (15-37); Alanine Aminotransfer ALT/SGPT 30 U/L (13-56); Albumin, Serum 3.9 g/dL (3.2-5.0); Alkaline Phosphatase 80 U/L (45-117); Anion Gap 3 (5-15); BUN 21 mg/dL (7-18); BUN/Creat Ratio 14.9 RATIO (10-20); CRP 3.36 mg/L (0.0-3.0); Calcium,Total 10.2 mg/dL (8.5-10.1); Chloride 101 mmol/L (98-107); Creatinine, Serum 1.41 mg/dL (0.55-1.02); EST Glomerular Filtration Rate 38 mL/min (>60); Est Glom Filt Rate - Afr Amer 46 mL/min (>60); Free T3 4.2 pg/mL (2.18-3.98); Globulin 3.4 g/dL (2.2-4.2); Glucose 105 mg/dL (74-106); LDH 371 U/L (84-246); Potassium 4.2 mmol/L (3.5-5.1); Protein, Total 7.3 g/dL (6.4-8.2); Sodium Level 135 mmol/L (136-145); T4 Free Direct 1.06 ng/dL (0.76-1.46)
[2024-02-22 18:08] LABS: Anti-Centromere B Ab <0.2 AI (0.0-0.9); Anti-Chromatin <0.2 AI (0.0-0.9); Anti-Jo <0.2 AI (0.0-0.9); Anti-Scleroderma-70 AB <0.2 AI (0.0-0.9); Anti-dsDNA Ab 2 IU/mL (0-9); Beef <0.10 kU/L (Class 0); Chocolate <0.10 kU/L (Class 0); Codfish <0.10 kU/L (Class 0); Corn <0.10 kU/L (Class 0); Egg, Whole <0.10 kU/L (Class 0); Milk (Cow) <0.10 kU/L (Class 0); Mussels <0.10 kU/L (Class 0); Peanut <0.10 kU/L (Class 0); Pork <0.10 kU/L (Class 0); RNP Ab <0.2 AI (0.0-0.9); SJOGREN'S Anti-SS-A test < 0.2 AI (0.0-0.9); SJOGREN'S Anti-SS-B test < 0.2 AI (0.0-0.9); Salmon <0.10 kU/L (Class 0); Shrimp <0.10 kU/L (Class 0); Smith Ab <0.2 AI (0.0-0.9); Soybean <0.10 kU/L (Class 0); Tuna <0.10 kU/L (Class 0); Wheat <0.10 kU/L (Class 0)
[2024-02-23 11:09] LABS: ACCA 14 units (0-90); ALCA 1 units (0-60); AMCA 15 units (0-100); Albumin 3.9 g/dL (2.9-4.4); Alpha-1-Globulins 0.3 g/dL (0.0-0.4); Alpha-2-Globulins 0.7 g/dL (0.4-1.0); Cytoplasmic Ab (C-ANCA) <1:20 titer (Neg:<1:20); Endomysial Antibody IgA Negative (Negative); Gamma Globulin 0.9 g/dL (0.4-1.8); Immunoglobulin A 140 mg/dL (64-422); Immunoglobulin E 8 IU/mL (6-495); Immunoglobulin G 962 mg/dL (586-1602); Immunoglobulin M 27 mg/dL (26-217); PROEL- TOTAL PROTEIN 6.7 g/dL (6.0-8.5); Perinuclear Ab (P-ANCA) <1:20 titer (Neg:<1:20); gASCA 10 units (0-50); t-Transglutaminase IgA <2 U/mL (0-3)
[2024-02-23 20:08] LABS: Calprotectin, Stool 44 ug/g (0-120)
== END | disposition home or self-care (01) ==
PROVIDERS: PCP Internal Medicine
DX: K21.9 Gastro-esophageal reflux disease without esophagitis (principal); R19.7 Diarrhea, unspecified
CPT/HCPCS: 36415; 80053; 82784; 82785; 83516; 83615; 83993; 84165; 84439; 84443; 84481; 85025; 85652; 86003; 86005; 86036; 86037; 86140; 86225; 86235; 86255; 86334; 86671

== ENCOUNTER → 2024-04-25 | Outpatient (CLI) | payer MEDICARE, BC, SELFPAY ==
--- NOTE | 2024-04-25 13:04 | NM_ITS ---
CLINICAL: 78-year-old female with history of early satiety. SEMI-SOLID PHASE 99m Tc SULFUR COLLOID GASTRIC EMPTYING STUDY COMPARISON: None available FINDINGS: The patient was administered 1.0 mCi of 99m Tc sulfur colloid mixed with oatmeal and consumed per os. Image acquisitions in the anterior-posterior projections were obtained for 60 minutes. There is prompt visualization of the stomach. There is no gastroesophageal reflux identified. The T ? linear fit was calculated to be 30.96 minutes, (Normal: 12-56 minutes). NM/Gastric Emptying Study IMPRESSION: 1. NORMAL 99m Tc sulfur colloid semi-solid phase (oatmeal) gastric emptying imaging examination. A. There is normal and preserved semi-solid phase gastric emptying compared to normal controls with maintained first order kinetics throughout all components of the examination. (Zara et al, J Nucl Med Tech 38: 186, 2010). Electronically Signed: Mitch Jiang DO at 9:49 EST ,
== END | disposition home or self-care (01) ==
LOC: NM 13:04
PROVIDERS: PCP Internal Medicine
DX: K21.9 Gastro-esophageal reflux disease without esophagitis (principal)
CPT/HCPCS: 78264; A9541